=== PATIENT | male | born 1960 | race American Indian/Alaskan Native ===

== ENCOUNTER 2023-07-17 22:42 | Inpatient (IN) ==
[2023-07-17] MEDS ORDERED: Patient's ALLERGY Info needs ENTERED SCH (22:54)
[2023-07-17 23:47] LABS: Basophils # (auto) 0.05 K/uL (0.00-0.20); Basophils % (auto) 0.8 %; Eosinophils # (auto) 0.08 K/uL (0.00-0.50); Eosinophils % (auto) 1.3 %; Hematocrit (blood only) 39.8 % (42.0-52.0); Hemoglobin 13.9 g/dl (14.0-18.0); Immature Granulocytes # (auto) 0.07 K/uL (0.01-0.20); Immature Granulocytes % (auto) 1.2 %; Lymphocytes # (auto) 0.63 K/uL (1.20-3.40); Lymphocytes % (auto) 10.4 %; Mean Corpuscular Hemoglobin 32.6 pg (25.0-34.0); Mean Corpuscular Hgb Conc 34.9 g/dL (32.0-36.0); Mean Corpuscular Volume 93.4 fL (80.0-100.0); Monocytes % (auto) 13.2 %; Neutrophils # (auto) 4.45 K/uL (1.40-6.50); Neutrophils % (auto) 73.1 %; Platelet Count 209 K/uL (130-400); RDW Coefficient of Variation 13.7 % (11.5-14.5); RDW Standard Deviation 46.8 fL (36.4-46.3); Red Blood Count 4.26 M/uL (4.70-6.10); White Blood Count 6.08 K/ul (4.8-10.8)
[2023-07-17 23:55] LABS: Albumin Globulin Ratio 1.3 (0.9-2); Albumin Level 4.4 gm/dl (3.4-5.0); BUN Creatinine Ratio 8.2 (10-20); Bilirubin,Total 0.4 mg/dl (0.2-1.0); Calcium 8.7 mg/dl (8.6-10.3); Creatinine Clr Calc Pharmacy 127.5 ml/min; Globulin 3.3 gm/dl (2.5-4.0); Potassium 3.6 mmol/L (3.5-5.1); Total Protein 7.7 gm/dl (6.0-8.3)
[2023-07-18] MEDS ORDERED: LORazepam 1 MG/1 ML SYR ED Inj Use IV STA (00:48)
[2023-07-18] MEDS ORDERED: MULTI-VITAMIN INFUSION 10 ML, THIAMINE HCL 100 MG, FOLIC ACID 1 MG in SODIUM CHLORIDE 0... IV ONE (00:48)
[2023-07-18] MEDS ORDERED: KETOROLAC TROMETHAMINE 15 MG/ML VIAL IV ONE (01:01)
[2023-07-18 01:12] LABS: Magnesium 1.6 mg/dl (1.7-2.4)
[2023-07-18] MEDS ORDERED: LORazepam 2 MG in SYRINGE 1 ML IV PRN (01:27)
[2023-07-18] MEDS ORDERED: OLANZapine 10 MG/2.1 ML SDV IM PRN (01:27)
[2023-07-18] MEDS ORDERED: LORazepam 3 MG in SYRINGE 1.5 ML IV PRN (01:27)
[2023-07-18] MEDS ORDERED: Ativan IV Alcohol Withdrawal--Active Protocol IV PRN (01:27)
--- NOTE | 2023-07-18 01:31 | History & Physical Report ---
Date of Service July 18, 2023 Assessment & Plan (1) Alcohol withdrawal: (2) Alcoholism: (3) Hypertension: (4) Hypomagnesemia: (5) Transaminitis: (6) GERD (gastroesophageal reflux disease): (7) COPD (chronic obstructive pulmonary disease): Plan Alcohol withdrawal/alcoholism- Patient has been a lifelong drinker Placed on AWSS with IV Ativan protocol in the a.m. Thiamine 100 mg IV every morning Folic acid 1 mg IV every morning NSS + KCl 20 mill equivalents at 80 mL/h x 2 L Hypertension- Reports his blood pressure has been elevated in the past, but is not on medication at this point Start clonidine 0.2 mg p.o. twice daily Hydralazine 10 mg IV every 4 hours as needed systolic blood pressure greater than 160 if heart rate less than 70 Lopressor 5 mg IV every 4 hours as needed for systolic blood pressure greater than 160 if heart rate greater than 70 Hypomagnesemia- Magnesium 1.6 on admission Give magnesium sulfate 2 g IV, repeat laboratories in a.m. Transaminitis- Likely secondary to alcohol AST 61, ALT 60, alkaline phosphatase [address] abdomen pelvis to assess for possible fatty liver versus ALEXANDER versus cirrhosis History of Present Illness Chief Complaint: The patient presents to the emergency department due to family concerns regarding worsening symptoms of alcohol withdrawal, including tremors, intermittent confusion, but no history of seizures during previous episodes of withdrawal Primary Care Provider: NO PCP The patient is a 63-year-old male with past medical history including alcoholism, GERD, and COPD, who comes into the emergency department at the insistence of his daughter, who is with him in the emergency department. He reports his last attempt at alcohol cessation was in 2019, and his last alcoholic drink was earlier in the day prior to arrival. He denies any recent travels or sick exposures. He has not had any issues with seizures in the past when going through withdrawal. He has been drinking all his life. Allergies Allergy/AdvReac Type Severity Reaction Status Date / Time doxycycline AdvReac Nausea Verified 07/18/23 01:45 morphine AdvReac Nausea Verified 07/18/23 01:45 Home Medications Medication Instructions Recorded Confirmed Type amoxicillin 500 mg capsule 500 mg PO TID 07/18/23 07/18/23 History ipratropium bromide 17 2 puff inhalation Q6 07/18/23 07/18/23 History mcg/actuation HFA aerosol inhaler (Atrovent HFA) ondansetron 4 mg disintegrating 4 mg PO Q6 PRN nausea or vomiting 07/18/23 07/18/23 History tablet prednisone 20 mg tablet 20 mg PO BID 07/18/23 07/18/23 History promethazine 25 mg tablet 25 mg PO Q4 PRN Nausea And Vomiting 07/18/23 07/18/23 History rabeprazole 20 mg tablet,delayed 20 mg PO DAILY 07/18/23 07/18/23 History release Past Med/Surg History Medical History (Updated 07/18/23 @ 06:42 by Asael Caraballo MD) COPD (chronic obstructive pulmonary disease) GERD (gastroesophageal reflux disease) Social History Smoking Status: Current every day smoker Tobacco Type: Cigarettes Preferred Language: Martiniquais Feels Safe at Home: Yes Review of Systems Review of Systems: The patient denies chest pain, palpitations, shortness of breath, dyspnea on exertion, cough, lower extremity swelling, sore throat, vomiting, diarrhea , constipation, abdominal pain, pelvic pain, blood in urine or stool, dysuria, urinary frequency or urgency, loss of consciousness, rash, abnormal bruising or bleeding, focal weakness, numbness or tingling in arms or legs, generalized arthralgias or myalgias, back or neck pain, or night sweats. The review of systems is otherwise negative other than for that already noted above, and at least 10 systems have been reviewed. Physical Exam Physical Exam: The patient is awake, alert and oriented 3, well developed and well nourished, normocephalic and atraumatic, lying in bed and in no acute distress, but upper extremity mild tremor bilaterally noted HEENT--PERRL, EOMI, mucous membranes and oropharynx dry. Neck--supple. No JVD. No bruits. Thyroid normal, trachea midline, no adenopathy. Heart--normal S1 and S2. No murmurs, rubs or gallops. Lungs--clear bilaterally, no respiratory distress, no accessory muscle use. Abdomen--normal bowel sounds and soft. Nontender. Nondistended. Mildly tympanitic Extremities--no cyanosis or clubbing. No edema. Dermatologic--normal skin turgor, normal color, no abnormal lymph nodes, no rash. Neurologic--cranial nerves II through XII grossly intact. Rheumatologic--normal range of motion. Psychiatric--normal affect. Results & Data Results & Data Vital Signs (Past 12 Hours) Vital Signs Temp Pulse Pulse Resp BP BP Pulse Ox 07/18/23 00:45 88 20 190/108 H 96 07/18/23 00:03 36.8 C 07/17/23 23:58 84 22 192/98 H 95 07/17/23 22:54 36.6 C 101 H 16 215/98 H 96 O2 Del Method 07/18/23 00:45 Room Air 07/18/23 00:03 07/17/23 23:58 Room Air 07/17/23 22:54 Room Air Laboratory Results Laboratory Results WBC 5.63 K/ul (4.8-10.8) 07/18/23 03:56 RBC 3.94 M/uL (4.70-6.10) L 07/18/23 03:56 Hgb 13.1 g/dl (14.0-18.0) L 07/18/23 03:56 Hct 36.6 % (42.0-52.0) L 07/18/23 03:56 MCV 92.9 fL (80.0-100.0) 07/18/23 03:56 MCH 33.2 pg (25.0-34.0) 07/18/23 03:56 MCHC 35.8 g/dL (32.0-36.0) 07/18/23 03:56 RDW Std Deviation 46.3 fL (36.4-46.3) 07/18/23 03:56 RDW Coeff of Enriqueta 13.5 % (11.5-14.5) 07/18/23 03:56 Plt Count 195 K/uL (130-400) 07/18/23 03:56 MPV 9.0 fL (9.4-12.4) L 07/18/23 03:56 Immature Gran % (Auto) 1.2 % 07/18/23 03:56 Neut % (Auto) 71.1 % 07/18/23 03:56 Lymph % (Auto) 13.0 % 07/18/23 03:56 [place] % (Auto) 12.6 % 07/18/23 03:56 Eos % (Auto) 1.4 % 07/18/23 03:56 Baso % (Auto) 0.7 % 07/18/23 03:56 Neut # (Auto) 4.00 K/uL (1.40-6.50) 07/18/23 03:56 Lymph # (Auto) 0.73 K/uL (1.20-3.40) L 07/18/23 03:56 [place] # (Auto) 0.71 K/uL (0.11-0.59) H 07/18/23 03:56 Eos # (Auto) 0.08 K/uL (0.00-0.50) 07/18/23 03:56 Baso # (Auto) 0.04 K/uL (0.00-0.20) 07/18/23 03:56 Immature Gran # (Auto) 0.07 K/uL (0.01-0.20) 07/18/23 03:56 Sodium 135 mmol/L (136-145) L 07/18/23 03:56 Potassium 3.4 mmol/L (3.5-5.1) L 07/18/23 03:56 Chloride 101 mmol/L (98-107) 07/18/23 03:56 Carbon Dioxide 26 mmol/L (21-32) 07/18/23 03:56 Anion Gap 8 (3-11) 07/18/23 03:56 BUN 5 mg/dl (6-23) L 07/18/23 03:56 Creatinine 0.54 mg/dl (0.6-1.4) L 07/18/23 03:56 Est Cr Clr Drug Dosing 144.0 ml/min 07/18/23 03:56 Est GFR ( Amer) 130.4 ml/min 07/18/23 03:56 Est GFR (Non-Af Amer) 112.5 ml/min 07/18/23 03:56 BUN/Creatinine Ratio 9.3 (10-20) L 07/18/23 03:56 Glucose 108 mg/dl (70-99(Fasting)) H 07/18/23 03:56 Calcium 8.0 mg/dl (8.6-10.3) L 07/18/23 03:56 Magnesium 1.6 mg/dl (1.7-2.4) L 07/17/23 23:14 Total Bilirubin 0.4 mg/dl (0.2-1.0) 07/18/23 03:56 AST 51 U/L (13-39) H 07/18/23 03:56 ALT 51 U/L (7-52) 07/18/23 03:56 Alkaline Phosphatase 98 U/L (34-104) 07/18/23 03:56 Total Protein 6.6 gm/dl (6.0-8.3) 07/18/23 03:56 Albumin 3.9 gm/dl (3.4-5.0) 07/18/23 03:56 Globulin 2.7 gm/dl (2.5-4.0) 07/18/23 03:56 Albumin/Globulin Ratio 1.4 (0.9-2) 07/18/23 03:56 Code Status & VTE Plan Code Status Full code VTE Prophylaxis Plan VTE Prophylaxis will be ordered: Yes PG Care Time/CCT Total # of Minutes Spent Total Time Spent with Patient: Total time spent is greater than 50% in coordination of care (as documented) at patient's floor/unit and/or counseling patient: Coding Level of Care Code 39434 INT INP/OBS CARE 3/75MIN Diagnoses Alcohol withdrawal F10.939 Alcoholism F10.20 Hypertension I10 Hypomagnesemia E83.42 Transaminitis R74.01 GERD (gastroesophageal reflux disease) K21.9 COPD (chronic obstructive pulmonary disease) J44.9
[2023-07-18] MEDS ORDERED: PANTOprazole 40 MG in SYRINGE 0 ML IV ONE (01:48)
[2023-07-18] MEDS ORDERED: ONDANSETRON INJ 2 MG/ML 2 ML VIAL IV PRN (02:59)
[2023-07-18] MEDS ORDERED: NSS + 20MEQ KCL 20 MEQ/1,000 ML BAG IV SCH (03:15)
[2023-07-18] MEDS: NSS + 20MEQ KCL 20 MEQ/1,000 ML BAG IV SCH ×2 (03:59→15:52)
[2023-07-18] MEDS: MAGNESIUM SULFATE / D5W 1 GM/100 ML BAG IV SCH ×2 (04:00→05:46)
--- NOTE | 2023-07-18 04:00 | Emergency Department Note ---
Impression & Plan Alcohol withdrawal, Hypertension ED Provider Note NAME: BRAYDEN MO AGE: 63 SEX: Male INFORMANT: Patient ED PROVIDER(S): Luis Alberto Méndez MD CHIEF COMPLAINT: Alcohol withdrawal PLAN: Disposition: Admitted Outpatient prescription management: none Referral: None MEDICAL DECISION MAKING: Patient presented because of complaints of alcohol withdrawal. He was tremulous and did have hypertension. Patient notes having significant issues with shaking in the past with discontinuation of alcohol. This is concerning for significant alcohol addiction and is very concerning for serious withdrawal. Patient was given a banana bag and 2 mg of IV Ativan. His LFTs are mildly elevated. CBC and chemistry panel was unremarkable otherwise. Discussed further management in the hospital with him and his family. They were in agreement. Consultation was made with Dr. Asael Caraballo of the [facility] service. Patient was evaluated in the ER for further management. Care/management discussed with: staffing branch manager Level of care consideration(s): After review of the information above and other included data, I feel the patient requires escalation of care to admission Triage Nursing notes: reviewed and agree them. Vital Signs: reviewed and remarkable for hypertension Additional History obtained from: Patient's daughter. She notes that he is very tremulous when he does not drink. Chronic Medical/Social Conditions affecting care: Alcohol addiction Prior/ Outside/ External records reviewed: none Differential Diagnosis: Alcohol withdrawal, toxicologic, infection, hypoglycemia, electrolyte abnormalities, cardiac sources, intracerebral event, neurologic, as well as other pathologies. Diagnostics, independently interpreted by me: ECG: Twelve-lead ECG reveals a normal sinus rhythm at [address] elevation or depression. Cardiac Monitoring: Cardiac monitoring ordered by me: The patient was placed on continuous cardiac monitoring and observed. It revealed a normal sinus rhythm at 82 beats per minute without ectopy or evidence of dysrhythmia. Medical decision rules: none Imaging studies: Chest x-ray notes some right-sided hilar fullness however no natanael infiltrate or pneumothorax. HPI: 63 year old Male arrives for evaluation of alcohol withdrawal. Patient notes a long history of drinking alcohol. He drinks up to 15 beers a day. He notes that he ran out of beer and only had 4 today. He felt very shaky, generally weak, and tremulous. This has happened to him many times before. He is very concerned about withdrawal. He did take a dose of Librium that was leftover from a prescription for years ago. He notes only minimal relief with that. Patient is also been dealing with a hoarse voice and cough for few months. He is pending ENT referral. Pt denies LOC, headache, fevers, chills, diaphoresis, visual changes, neck pain, chest pain, breathing difficulties, nausea, vomiting, abdominal pain, back pain, melena, hematochezia, urinary symptoms, numbness, lymphadenopathy, rash, or other complaints.. PAST MEDICAL HISTORY: See Below, alcohol abuse PAST SURGICAL HISTORY: See Below, SOCIAL HISTORY: See Below, drinks daily HOME MEDICATIONS: See Below ALLERGIES: See Below VITALS: See Below PHYSICAL EXAMINATION: GENERAL: Awake, alert, anxious-appearing, mildly tremulous, in no distress HENT: Normocephalic, atraumatic. Oropharynx unremarkable. EYES: Normal conjunctiva. Sclera non-icteric. NECK: Inspection normal. Non-tender. Supple. No nuchal rigidity. FROM. No masses. RESPIRATORY: Clear to auscultation. No wheezes. No rales. Normal respiratory effort. CARDIAC: Normal rate. Normal rhythm. No murmurs. No rubs. Extremities warm and well perfused. Pulses equal. No JVD. GI: Soft, mildly distended. No tenderness to palpation. No rebound or guarding. No masses. RECTAL: Deferred. MUSCULOSKELETAL: Atraumatic. Chest examination reveals no tenderness. The back is symmetrical on inspection without obvious abnormality. There is no CVA tenderness to palpation. No joint edema. LOWER EXTREMITIES: Calves are equal size bilaterally and non-tender. No edema. No discoloration. NEURO: Normal sensorium. No sensory or motor deficits noted. SKIN: No rash or jaundice noted. PROCEDURES: none CRITICAL CARE: none OBSERVATION NOTE: none Past Med/Surg History Social History Smoking Status: Current every day smoker Tobacco Type: Cigarettes Preferred Language: Telugu Feels Safe at Home: Yes Allergies Allergies Allergy/AdvReac Type Severity Reaction Status Date / Time doxycycline AdvReac Nausea Verified 07/18/23 01:45 morphine AdvReac Nausea Verified 07/18/23 01:45 Home Meds Home Medications Medication Instructions Recorded Confirmed amoxicillin 500 mg capsule 500 mg PO TID 07/18/23 07/18/23 ipratropium bromide 17 2 puff inhalation Q6 07/18/23 07/18/23 mcg/actuation HFA aerosol inhaler (Atrovent HFA) ondansetron 4 mg disintegrating 4 mg PO Q6 PRN nausea or vomiting 07/18/23 07/18/23 tablet prednisone 20 mg tablet 20 mg PO BID 07/18/23 07/18/23 promethazine 25 mg tablet 25 mg PO Q4 PRN Nausea And Vomiting 07/18/23 07/18/23 rabeprazole 20 mg tablet,delayed 20 mg PO DAILY 07/18/23 07/18/23 release Results & Data (ED) Vital Signs Vital Signs - 24 hr 07/17/23 22:54 07/17/23 23:58 07/18/23 00:03 Temperature 36.6 C 36.8 C Temperature Source Temporal Artery Scan Oral Pulse Rate 101 H Pulse Rate [Apical] 84 Respiratory Rate 16 22 Blood Pressure 215/98 H Blood Pressure [Right Arm] 192/98 H Blood Pressure Mean 137 Blood Pressure Mean [Right Arm] 129 Pulse Oximetry 96 95 Oxygen Delivery Method Room Air Room Air Sepsis Recent Fever Within 48 Hours No Sepsis New/Unexplained Change in Mental Status No Sepsis Action Taken by Nursing No Action Required 07/18/23 00:45 07/18/23 00:50 Temperature Temperature Source Pulse Rate 88 Pulse Rate [Apical] 88 Respiratory Rate 20 Blood Pressure Blood Pressure [Right Arm] 190/108 H Blood Pressure Mean Blood Pressure Mean [Right Arm] 135 Pulse Oximetry 96 Oxygen Delivery Method Room Air Sepsis Recent Fever Within 48 Hours Sepsis New/Unexplained Change in Mental Status Sepsis Action Taken by Nursing Laboratory Data 07/17/23 23:14 07/17/23 23:14 Lab Results 07/17/23 Range/Units 23:14 WBC 6.08 (4.8-10.8) K/ul RBC 4.26 L (4.70-6.10) M/uL Hgb 13.9 L (14.0-18.0) g/dl Hct 39.8 L (42.0-52.0) % MCV 93.4 (80.0-100.0) fL MCH 32.6 (25.0-34.0) pg MCHC 34.9 (32.0-36.0) g/dL RDW Std Deviation 46.8 H (36.4-46.3) fL RDW Coeff of Enriqueta 13.7 (11.5-14.5) % Plt Count 209 (130-400) K/uL MPV 9.0 L (9.4-12.4) fL Immature Gran % (Auto) 1.2 % Neut % (Auto) 73.1 % Lymph % (Auto) 10.4 % [place] % (Auto) 13.2 % Eos % (Auto) 1.3 % Baso % (Auto) 0.8 % Neut # (Auto) 4.45 (1.40-6.50) K/uL Lymph # (Auto) 0.63 L (1.20-3.40) K/uL [place] # (Auto) 0.80 H (0.11-0.59) K/uL Eos # (Auto) 0.08 (0.00-0.50) K/uL Baso # (Auto) 0.05 (0.00-0.20) K/uL Immature Gran # (Auto) 0.07 (0.01-0.20) K/uL Sodium 133 L (136-145) mmol/L Potassium 3.6 (3.5-5.1) mmol/L Chloride 96 L (98-107) mmol/L Carbon Dioxide 26 (21-32) mmol/L Anion Gap 11 (3-11) BUN 5 L (6-23) mg/dl Creatinine 0.61 (0.6-1.4) mg/dl Est Cr Clr Drug Dosing 127.5 ml/min Est GFR ( Amer) 124.0 ml/min Est GFR (Non-Af Amer) 107.0 ml/min BUN/Creatinine Ratio 8.2 L (10-20) Glucose 95 (70-99(Fasting)) mg/dl Calcium 8.7 (8.6-10.3) mg/dl Magnesium 1.6 L (1.7-2.4) mg/dl Total Bilirubin 0.4 (0.2-1.0) mg/dl AST 61 H (13-39) U/L ALT 60 H (7-52) U/L Alkaline Phosphatase 107 H (34-104) U/L Total Protein 7.7 (6.0-8.3) gm/dl Albumin 4.4 (3.4-5.0) gm/dl Globulin 3.3 (2.5-4.0) gm/dl Albumin/Globulin Ratio 1.3 (0.9-2) Administered Medications Discontinued Medications Multivitamins 10 ml/ Thiamine HCl 100 mg/ Folic Acid 1 mg/Sodium Chloride 1,011.2 mls @ 500 mls/hr IV .Q2H2M ONE Stop: 07/18/23 02:49 Last Admin: 07/18/23 01:05 Dose: 500 mls/hr Documented By: LINDA Pantoprazole Sodium 40 mg/ (Syringe) 10 mls @ 5 mls/min IV NOW ONE Stop: 07/18/23 01:49 Last Admin: 07/18/23 02:13 Dose: 5 mls/min Documented By: LINDA Ketorolac Tromethamine (Ketorolac Tromethamine 15 Mg/Ml Vial) 10 mg IV NOW ONE Stop: 07/18/23 01:02 Last Admin: 07/18/23 01:05 Dose: 10 mg Documented By: LINDA Lorazepam (Lorazepam 1 Mg/1 Ml Syr Ed Inj Use) 2 mg IV ONE STA Stop: 07/18/23 00:49 Last Admin: 07/18/23 00:53 Dose: 2 mg Documented By: LINDA Discharge Plan Visit Data Chief Complaint: Alcohol Withdrawal Stated Complaint: TREMERS FROM ALCOHOL WITHDRAWL ED Provider: Luis Alberto Méndez Discharge Problem: Alcohol withdrawal, Hypertension Patient Disposition: Admitted As Inpatient Discharge Instructions Interventions: ED Discharge Assessment Last Done: 07/18/23 02:59
[2023-07-18 04:36] LABS: Basophils # (auto) 0.04 K/uL (0.00-0.20); Basophils % (auto) 0.7 %; Eosinophils # (auto) 0.08 K/uL (0.00-0.50); Eosinophils % (auto) 1.4 %; Hematocrit (blood only) 36.6 % (42.0-52.0); Hemoglobin 13.1 g/dl (14.0-18.0); Immature Granulocytes # (auto) 0.07 K/uL (0.01-0.20); Immature Granulocytes % (auto) 1.2 %; Lymphocytes # (auto) 0.73 K/uL (1.20-3.40); Mean Corpuscular Hemoglobin 33.2 pg (25.0-34.0); Mean Corpuscular Hgb Conc 35.8 g/dL (32.0-36.0); Mean Corpuscular Volume 92.9 fL (80.0-100.0); Monocytes # (auto) 0.71 K/uL (0.11-0.59); Monocytes % (auto) 12.6 %; Neutrophils % (auto) 71.1 %; Platelet Count 195 K/uL (130-400); RDW Coefficient of Variation 13.5 % (11.5-14.5); RDW Standard Deviation 46.3 fL (36.4-46.3); Red Blood Count 3.94 M/uL (4.70-6.10); White Blood Count 5.63 K/ul (4.8-10.8)
[2023-07-18 04:53] LABS: Albumin Globulin Ratio 1.4 (0.9-2); Albumin Level 3.9 gm/dl (3.4-5.0); BUN Creatinine Ratio 9.3 (10-20); Bilirubin,Total 0.4 mg/dl (0.2-1.0); Est GFR (African American) 130.4 ml/min; Est GFR (Non-African American) 112.5 ml/min; Globulin 2.7 gm/dl (2.5-4.0); Potassium 3.4 mmol/L (3.5-5.1); Total Protein 6.6 gm/dl (6.0-8.3)
[2023-07-18] MEDS: LORazepam 1 MG in SYRINGE 0.5 ML IV PRN ×2 (05:54→10:59)
[2023-07-18] MEDS ORDERED: hydrALAZINE HCL 20 MG/ML VIAL IV PRN (06:32)
[2023-07-18] MEDS ORDERED: METOPROLOL TARTRATE 1 MG/ML VIAL IV PRN (06:32)
--- NOTE | 2023-07-18 07:00 | XRay Report ---
XR chest 1V portable CLINICAL HISTORY: Cough. COMPARISON STUDY: No previous studies for comparison. FINDINGS: Lung volumes are normal. Lungs are clear. There is no pneumothorax or pleural effusion. Car diac size is normal. Mediastinal contours are normal. There is no evidence for pulmonary edema. IMPRESSION: No acute cardiopulmonary findings. ACT 112: Negative or not required by law. Electronically signed by: Jefe Mcintosh M.D. 07/18/2023 6:58 AM
--- NOTE | 2023-07-18 08:30 | CT Scan Report ---
ABDOMEN AND PELVIS CT WITHOUT CONTRAST CT DOSE: 1107.32 mGy.cm HISTORY: Acute upper abdominal pain with elevated LFTs transaminitis TECHNIQUE: Multiaxial CT images of the abdomen and pelvis were performed without contrast. A dose lo wering technique was utilized adhering to the principles of ALARA. COMPARISON STUDY: None. FINDINGS: No acute lower thoracic abnormality identified. No free air. The unenhanced spleen is unrem arkable with scattered subcentimeter calcifications. Unremarkable pancreas and adrenal glands. Cholec ystectomy. The liver is enlarged measuring up to 22 cm. Hepatic steatosis. No suspicious hepatic mass lesions identified. Mild nonspecific bilateral perinephric stranding. No renal or ureteral calculi or hydronephrosis. The urinary bladder is distended measuring up to 14.7 cm. Prostate is upper limits of normal in size. At herosclerosis of the aorta without aneurysm. No lymphadenopathy. Mild colonic diverticulosis. Mild to moderate colonic fecal retention. Noninflamed appendix, image 26 7. No bowel obstruction or bowel wall thickening. Scattered small bowel air-fluid levels which may be physiologic. Unremarkable soft tissues. Avascular necrosis of left femoral head. No acute fracture. IMPRESSION: 1. No bowel obstruction or bowel wall thickening. Normal appendix. 2. Colonic diverticulosis. 3. Hepatomegaly with hepatic steatosis. 4. Distended urinary bladder. 5. Avascular necrosis of the left femoral head. ACT 112: Negative or not required by law. The above report was generated using voice recognition software. It may contain grammatical, syntax o r spelling errors. Electronically signed by: Rayshawn Gomez M.D. 07/18/2023 8:28 AM
[2023-07-18] MEDS: cloNIDine HCL 0.1 MG TAB PO SCH ×2 (08:33→21:45)
[2023-07-18] MEDS: FOLIC ACID 1 MG in SYRINGE 9.8 ML IV SCH (08:34)
[2023-07-18] MEDS: THIAMINE HCL 100 MG in SYRINGE 9 ML IV SCH (08:34)
[2023-07-18] MEDS: ENOXAPARIN INJ 40 MG/0.4 ML SYR SQ SCH (08:34)
[2023-07-18] MEDS: PANTOprazole 40 MG in SYRINGE 0 ML IV SCH (10:53)
[2023-07-18] MEDS ORDERED: LORazepam 1 MG/1 ML SYR ED Inj Use ONE (13:56)
[2023-07-18 15:23] LABS: Appearance Urine Clear (Clear); Bilirubin Urine Negative (Negative); Blood Urine Negative (Negative); Color Urine Yellow; Glucose Urine UA Negative (Negative); Ketones Urine Negative (Negative); Leukocyte Esterase Urine Negative (Negative); Nitrite Urine Negative (Negative); Protein Urine Negative (Negative); Specific Gravity Urine 1.005 (1.000-1.030); Urobilinogen Urine Negative (Negative)
[2023-07-18] MEDS ORDERED: chlordiazePOXIDE ALCOHOL WITHDRAWL 50MG PO STA (15:31)
[2023-07-18] MEDS: chlordiazePOXIDE HCl 25 MG CAP PO SCH ×3 (15:53→21:45)
--- NOTE | 2023-07-18 17:24 | Communication Note ---
Date of Service: July 18, 2023 Please refer to the H&P dictated by Dr. Asael Caraballo earlier this morning for details of presentation on admission. In brief, the patient presented to the ER since his daughter insisted on alcohol cessation. He says that he wishes to quit. He is now going through alcohol withdrawals. He is on the AW SS protocol. He wanted to be switched from Ativan to Librium. He has had alcohol withdrawals in the past but never had a seizure. Will monitor.
--- NOTE | 2023-07-18 19:52 | Electrocardiogram Report ---
Test Reason : Blood Pressure : / mmHG Vent. Rate : 090 BPM Atrial Rate : 090 BPM P-R Int : 130 ms QRS Dur : 088 ms QT Int : 378 ms P-R-T Axes : 057 049 048 degrees QTc Int : 462 ms Normal sinus rhythm Normal ECG No previous ECGs available Confirmed by Nacho Lopez ([id number]) on 07/18/2023 7:51:59 PM Referred By: REFERRED SELF Confirmed By:Shayne Lopez
[2023-07-18] MEDS: IBUPROFEN 600 MG TAB PO PRN (20:40)
[2023-07-19] MEDS: NSS + 20MEQ KCL 20 MEQ/1,000 ML BAG IV SCH ×3 (03:40→20:16)
[2023-07-19] MEDS: chlordiazePOXIDE HCl 25 MG CAP PO SCH ×3 (03:40→17:41)
[2023-07-19] MEDS ORDERED: COUGH DROP (SUGAR FREE) LOZ 24 LOZ/1 BOX BUCCAL PRN (05:06)
[2023-07-19] MEDS: CHLORASEPTIC (PHENOL) 1.4% SOLN 180 ML BTL MT PRN ×2 (05:47→20:14)
[2023-07-19 06:09] LABS: Basophils # (auto) 0.05 K/uL (0.00-0.20); Basophils % (auto) 1.1 %; Eosinophils # (auto) 0.15 K/uL (0.00-0.50); Eosinophils % (auto) 3.4 %; Hematocrit (blood only) 40.8 % (42.0-52.0); Hemoglobin 13.7 g/dl (14.0-18.0); Immature Granulocytes # (auto) 0.04 K/uL (0.01-0.20); Immature Granulocytes % (auto) 0.9 %; Lymphocytes # (auto) 1.03 K/uL (1.20-3.40); Lymphocytes % (auto) 23.5 %; Mean Corpuscular Hemoglobin 32.5 pg (25.0-34.0); Mean Corpuscular Hgb Conc 33.6 g/dL (32.0-36.0); Mean Corpuscular Volume 96.7 fL (80.0-100.0); Mean Platelet Volume 9.2 fL (9.4-12.4); Monocytes # (auto) 0.68 K/uL (0.11-0.59); Monocytes % (auto) 15.5 %; Neutrophils # (auto) 2.43 K/uL (1.40-6.50); Neutrophils % (auto) 55.6 %; Platelet Count 203 K/uL (130-400); RDW Coefficient of Variation 13.9 % (11.5-14.5); RDW Standard Deviation 49.1 fL (36.4-46.3); Red Blood Count 4.22 M/uL (4.70-6.10); White Blood Count 4.38 K/ul (4.8-10.8)
[2023-07-19 06:23] LABS: Albumin Globulin Ratio 1.4 (0.9-2); Albumin Level 4.1 gm/dl (3.4-5.0); BUN Creatinine Ratio 11.3 (10-20); Bilirubin,Total 0.5 mg/dl (0.2-1.0); Calcium 8.9 mg/dl (8.6-10.3); Creatinine Clr Calc Pharmacy 100.9 ml/min; Est GFR (African American) 116.5 ml/min; Est GFR (Non-African American) 100.6 ml/min; Globulin 2.9 gm/dl (2.5-4.0); Potassium 3.8 mmol/L (3.5-5.1)
[2023-07-19] MEDS: FOLIC ACID 1 MG in SYRINGE 9.8 ML IV SCH (08:54)
[2023-07-19] MEDS: cloNIDine HCL 0.1 MG TAB PO SCH ×2 (08:54→20:16)
[2023-07-19] MEDS: THIAMINE HCL 100 MG in SYRINGE 9 ML IV SCH (08:54)
[2023-07-19] MEDS: ENOXAPARIN INJ 40 MG/0.4 ML SYR SQ SCH (08:55)
[2023-07-19] MEDS: PANTOprazole 40 MG in SYRINGE 0 ML IV SCH (11:44)
[2023-07-19] MEDS ORDERED: OPTIRAY 320 500ml IV ONE (15:27)
--- NOTE | 2023-07-19 15:43 | CT Scan Report ---
CT OF THE NECK WITH IV CONTRAST CLINICAL HISTORY: Throat pain. COMPARISON STUDY: No previous studies for comparison. TECHNIQUE: Following IV administration of 90 mL of Optiray, helical axial images of the neck were ob tained. Sagittal and coronal reconstructions were viewed. Automated exposure control was utilized f or the study. A dose lowering technique was utilized adhering to the principles of ALARA. FINDINGS: Visualized portions of the intracranial contents are unremarkable. Sinuses are clear. Visu alized portions of the orbits are unremarkable. There is mild sinus mucosal thickening. Parotid and s ubmandibular glands are normal. The epiglottis is normal. There is no prevertebral edema. No fluid co llection within the neck is present. No mucosal lesion is identified although these may be occult by CT. Major vasculature of the neck is patent. There is moderate plaque within the carotid bifurcations without stenosis. Emphysema within the lung apices. No selective cervical spine abnormality is prese nt. IMPRESSION: 1. No acute process within the neck. No fluid collection. No abscess. 2. Emphysema. ACT 112: Negative or not required by law. Electronically signed by: Jefe Mcintosh M.D. 07/19/2023 3:41 PM
[2023-07-19] MEDS ORDERED: BENZOCAINE 20% (ORAJEL) 11.9 GM TUBE MT PRN (15:47)
--- NOTE | 2023-07-19 15:51 | Hospitalist Progress Note ---
Date of Service July 19, 2023 Assessment & Plan (1) Alcohol withdrawal: (2) Alcoholism: (3) Hypertension: (4) Hypomagnesemia: (5) Transaminitis: (6) GERD (gastroesophageal reflux disease): (7) COPD (chronic obstructive pulmonary disease): Plan Alcohol withdrawal/alcoholism- Patient has been a lifelong drinker Placed on AWSS On Librium tapering dose Thiamine 100 mg IV every morning Folic acid 1 mg IV every morning NSS + KCl 20 mill equivalents at 80 mL/h x 2 L Hypertension- Reports his blood pressure has been elevated in the past, but is not on medication at this point Start clonidine 0.2 mg p.o. twice daily Hydralazine 10 mg IV every 4 hours as needed systolic blood pressure greater than 160 if heart rate less than 70 Lopressor 5 mg IV every 4 hours as needed for systolic blood pressure greater than 160 if heart rate greater than 70 Hypomagnesemia- Magnesium 1.6 on admission Give magnesium sulfate 2 g IV Improved Transaminitis- Likely secondary to alcohol AST 61, ALT 60, alkaline phosphatase 107 CT abdomen showed hepatic steatosis. No cirrhosis seen. Throat and mouth pain No oral thrush seen CT soft tissue of the neck was negative Ordered benzocaine for symptomatic relief Ordered nystatin in case there is thrush more internally that was not visible e xternally DVT prophylaxis: Lovenox Full code Admission and Anticipated Discharge Date Admission Date: July 18, 2023 Subjective Patient is complaining of pain in his mouth and throat. He tells me that this throat pain has been going on for 2 months. He is requesting a CT of the neck. From a withdrawal standpoint, he is doing fairly well per nurse. Review of Systems Review of Systems: All systems reviewed & are unremarkable except as noted in Subjective Physical Exam Physical Exam: General: Awake, conversant Heart: S1, S2/regular rate and rhythm, no murmur rubs or gallops Lungs: Clear to auscultation bilaterally. Normal effort Abdomen: Soft/nontender/nondistended. No hepatosplenomegaly Extremities: No clubbing/cyanosis. No edema Behavior: Appropriate, cooperative Results & Data Results & Data Vital Signs (Past 12 Hours) Vital Signs Temp Pulse Pulse Resp BP Pulse Ox O2 Del Method 07/19/23 15:13 72 07/19/23 07:54 73 07/19/23 07:23 36.8 C 72 20 164/90 H 98 Room Air 07/19/23 06:24 80 Laboratory Results Soft Tissue Neck CT 07/19/23 14:25 CT OF THE NECK WITH IV CONTRAST CLINICAL HISTORY: Throat pain. COMPARISON STUDY: No previous studies for comparison. TECHNIQUE: Following IV administration of 90 mL of Optiray, helical axial images of the neck were obtained. Sagittal and coronal reconstructions were viewed. Automated exposure control was utilized for the study. A dose lowering technique was utilized adhering to the principles of ALARA. FINDINGS: Visualized portions of the intracranial contents are unremarkable. Sinuses are clear. Visualized portions of the orbits are unremarkable. There is mild sinus mucosal thickening. Parotid and submandibular glands are normal. The epiglottis is normal. There is no prevertebral edema. No fluid collection within the neck is present. No mucosal lesion is identified although these may be occult by CT. Major vasculature of the neck is patent. There is moderate plaque within the carotid bifurcations without stenosis. Emphysema within the lung apices. No selective cervical spine abnormality is present. IMPRESSION: 1. No acute process within the neck. No fluid collection. No abscess. 2. Emphysema. ACT 112: Negative or not required by law. Electronically signed by: Jefe Mcintosh M.D. 07/19/2023 3:41 PM PG Care Time/CCT Total # of Minutes Spent Total Time Spent with Patient: Total time spent is greater than 50% in coordination of care (as documented) at patient's floor/unit and/or counseling patient: Coding Level of Care Code 95398 SUB INP/OBS CARE 2/35MIN Diagnoses Alcohol withdrawal F10.939 Alcoholism F10.20 Hypertension I10 Hypomagnesemia E83.42 Transaminitis R74.01 GERD (gastroesophageal reflux disease) K21.9 COPD (chronic obstructive pulmonary disease) J44.9
[2023-07-19] MEDS: NYSTATIN SUSP 500,000 U/5 ML UDC PO SCH ×2 (17:41→20:14)
[2023-07-19] MEDS: LORazepam 1 MG in SYRINGE 0.5 ML IV PRN (20:14)
[2023-07-20] MEDS ORDERED: guaiFENesin 600 MG TABCR PO ONE (00:03)
[2023-07-20] MEDS: IBUPROFEN 600 MG TAB PO PRN ×2 (00:34→20:36)
[2023-07-20] MEDS: chlordiazePOXIDE HCl 25 MG CAP PO SCH ×3 (02:36→17:55)
[2023-07-20 06:30] LABS: Basophils # (auto) 0.05 K/uL (0.00-0.20); Eosinophils # (auto) 0.19 K/uL (0.00-0.50); Eosinophils % (auto) 3.8 %; Hematocrit (blood only) 40.7 % (42.0-52.0); Hemoglobin 13.6 g/dl (14.0-18.0); Immature Granulocytes # (auto) 0.08 K/uL (0.01-0.20); Immature Granulocytes % (auto) 1.6 %; Lymphocytes % (auto) 19.8 %; Mean Corpuscular Hemoglobin 32.2 pg (25.0-34.0); Mean Corpuscular Hgb Conc 33.4 g/dL (32.0-36.0); Mean Corpuscular Volume 96.4 fL (80.0-100.0); Mean Platelet Volume 9.3 fL (9.4-12.4); Monocytes # (auto) 0.76 K/uL (0.11-0.59); Neutrophils # (auto) 2.98 K/uL (1.40-6.50); Neutrophils % (auto) 58.8 %; Platelet Count 206 K/uL (130-400); RDW Coefficient of Variation 13.8 % (11.5-14.5); Red Blood Count 4.22 M/uL (4.70-6.10); White Blood Count 5.06 K/ul (4.8-10.8)
[2023-07-20 06:41] LABS: Albumin Globulin Ratio 1.4 (0.9-2); BUN Creatinine Ratio 11.1 (10-20); Bilirubin,Total 0.5 mg/dl (0.2-1.0); Creatinine Clr Calc Pharmacy 107.8 ml/min; Est GFR (African American) 115.9 ml/min; Globulin 2.9 gm/dl (2.5-4.0); Magnesium 1.8 mg/dl (1.7-2.4); Potassium 3.8 mmol/L (3.5-5.1); Total Protein 6.9 gm/dl (6.0-8.3)
[2023-07-20] MEDS: ENOXAPARIN INJ 40 MG/0.4 ML SYR SQ SCH (08:59)
[2023-07-20] MEDS: cloNIDine HCL 0.1 MG TAB PO SCH ×2 (08:59→20:36)
[2023-07-20] MEDS: NYSTATIN SUSP 500,000 U/5 ML UDC PO SCH ×4 (09:00→20:37)
[2023-07-20] MEDS: THIAMINE HCL 100 MG in SYRINGE 9 ML IV SCH (09:00)
[2023-07-20] MEDS: FOLIC ACID 1 MG in SYRINGE 9.8 ML IV SCH (09:00)
[2023-07-20] MEDS ORDERED: Nursing to Pharmacy Communication SCH (11:00)
[2023-07-20] MEDS: NSS + 20MEQ KCL 20 MEQ/1,000 ML BAG IV SCH (11:57)
[2023-07-20] MEDS: DOCUSATE SODIUM 100 MG CAP PO SCH ×2 (12:01→20:38)
[2023-07-20] MEDS: POLYETHYLENE (MIRALAX) 17 GM PACK PO PRN (12:01)
--- NOTE | 2023-07-20 13:06 | Hospitalist Progress Note ---
Date of Service July 20, 2023 Assessment & Plan (1) Alcohol withdrawal: (2) Alcoholism: (3) Hypertension: (4) Hypomagnesemia: (5) Transaminitis: (6) GERD (gastroesophageal reflux disease): (7) COPD (chronic obstructive pulmonary disease): Plan Alcohol withdrawal/alcoholism- Patient has been a lifelong drinker Placed on AWSS On Librium tapering dose. Patient is agreeable to taking Librium now Thiamine 100 mg IV every morning Folic acid 1 mg IV every morning NSS + KCl 20 mill equivalents at 80 mL/h x 2 L Hypertension- Reports his blood pressure has been elevated in the past, but is not on medication at this point Start clonidine 0.2 mg p.o. twice daily Hydralazine 10 mg IV every 4 hours as needed systolic blood pressure greater than 160 if heart rate less than 70 Lopressor 5 mg IV every 4 hours as needed for systolic blood pressure greater than 160 if heart rate greater than 70 Hypomagnesemia- Magnesium 1.6 on admission Give magnesium sulfate 2 g IV Improved Transaminitis- Likely secondary to alcohol AST 61, ALT 60, alkaline phosphatase 107 CT abdomen showed hepatic steatosis. No cirrhosis seen. Abdominal distention Patient feels that his abdomen is distended subjectively Recent CT abdomen did not show any ascites or ileus Patient is eating 100% of his meals No nausea or vomiting Patient had a bowel movement today but says that he feels like he could have evacuated more. Ordered a bowel regimen Asked the nurse to inform me if he vomits Throat and mouth pain No oral thrush seen CT soft tissue of the neck was negative Ordered benzocaine for symptomatic relief Ordered nystatin in case there is thrush more internally that was not visible externally DVT prophylaxis: Lovenox Full code Admission and Anticipated Discharge Date Admission Date: July 18, 2023 Subjective Patient is refusing Librium because he thinks that it is making his abdomen feel bloated. Per nurse, the patient is eating well. Not throwing up. Had a bowel movement. He tells me that he did not feel like he evacuated enough. He says he feels gassy. Review of Systems Review of Systems: All systems reviewed & are unremarkable except as noted in Subjective Physical Exam Physical Exam: General: Awake, conversant Heart: S1, S2/regular rate and rhythm, no murmur rubs or gallops Lungs: Clear to auscultation bilaterally. Normal effort Abdomen: Soft/nontender/slightly distended. No hepatosplenomegaly Extremities: No clubbing/cyanosis. No edema Behavior: Appropriate, cooperative Results & Data Results & Data Vital Signs (Past 12 Hours) Vital Signs Temp Pulse Pulse Resp BP Pulse Ox O2 Del Method 07/20/23 12:25 36.4 C L 82 18 132/80 95 Room Air 07/20/23 09:00 Room Air 07/20/23 07:44 63 07/20/23 03:08 36.4 C L 68 18 153/92 H 96 Room Air 07/20/23 02:00 89 Laboratory Results Abnormal lab results 07/20/23 Range/Units 05:33 RBC 4.22 L (4.70-6.10) M/uL Hgb 13.6 L (14.0-18.0) g/dl Hct 40.7 L (42.0-52.0) % RDW Std Deviation 49.0 H (36.4-46.3) fL MPV 9.3 L (9.4-12.4) fL Lymph # (Auto) 1.00 L (1.20-3.40) K/uL [place] # (Auto) 0.76 H (0.11-0.59) K/uL Diagnostic Findings Soft Tissue Neck CT 07/19/23 14:25 CT OF THE NECK WITH IV CONTRAST CLINICAL HISTORY: Throat pain. COMPARISON STUDY: No previous studies for comparison. TECHNIQUE: Following IV administration of 90 mL of Optiray, helical axial images of the neck were obtained. Sagittal and coronal reconstructions were viewed. Automated exposure control was utilized for the study. A dose lowering technique was utilized adhering to the principles of ALARA. FINDINGS: Visualized portions of the intracranial contents are unremarkable. Sinuses are clear. Visualized portions of the orbits are unremarkable. There is mild sinus mucosal thickening. Parotid and submandibular glands are normal. The epiglottis is normal. There is no prevertebral edema. No fluid collection within the neck is present. No mucosal lesion is identified although these may be occult by CT. Major vasculature of the neck is patent. There is moderate plaque within the carotid bifurcations without stenosis. Emphysema within the lung apices. No selective cervical spine abnormality is present. IMPRESSION: 1. No acute process within the neck. No fluid collection. No abscess. 2. Emphysema. ACT 112: Negative or not required by law. Electronically signed by: Jefe Mcintosh M.D. 07/19/2023 3:41 PM PG Care Time/CCT Total # of Minutes Spent Total Time Spent with Patient: Total time spent is greater than 50% in coordination of care (as documented) at patient's floor/unit and/or counseling patient: Coding Level of Care Code 96715 SUB INP/OBS CARE 2/35MIN Diagnoses Alcohol withdrawal F10.939 Alcoholism F10.20 Hypertension I10 Hypomagnesemia E83.42 Transaminitis R74.01 GERD (gastroesophageal reflux disease) K21.9 COPD (chronic obstructive pulmonary disease) J44.9
[2023-07-20] MEDS: guaiFENesin 600 MG TABCR PO SCH ×2 (13:28→20:37)
[2023-07-20] MEDS ORDERED: bisacodyL 10 MG SUPP PR STA (18:37)
[2023-07-20] MEDS ORDERED: POLYETHYLENE (MIRALAX) 17 GM PACK PO ONE (19:28)
[2023-07-20] MEDS ORDERED: POLYETHYLENE (MIRALAX) 17 GM PACK PO SCH (19:30)
[2023-07-20] MEDS: CHLORASEPTIC (PHENOL) 1.4% SOLN 180 ML BTL MT PRN (20:36)
[2023-07-20] MEDS: LORazepam 1 MG in SYRINGE 0.5 ML IV PRN (20:36)
[2023-07-20] MEDS ORDERED: guaiFENesin 600 MG TABCR PO SCH (21:00)
[2023-07-21] MEDS: chlordiazePOXIDE HCl 25 MG CAP PO SCH ×2 (02:27→08:19)
[2023-07-21] MEDS ORDERED: bisacodyL 10 MG SUPP PR STA ×2 (03:11→21:37)
[2023-07-21] MEDS ORDERED: PROMETHAZINE HCL 25 MG TAB PO ONE (06:38)
[2023-07-21 07:15] LABS: Creatinine Clr Calc Pharmacy 112.5 ml/min; Est GFR (African American) 117.9 ml/min; Est GFR (Non-African American) 101.7 ml/min; Magnesium 1.8 mg/dl (1.7-2.4)
[2023-07-21] MEDS: guaiFENesin 600 MG TABCR PO SCH ×2 (08:19→20:28)
[2023-07-21] MEDS: IBUPROFEN 600 MG TAB PO PRN ×2 (08:19→20:24)
[2023-07-21] MEDS: DOCUSATE SODIUM 100 MG CAP PO SCH ×2 (08:19→20:28)
[2023-07-21] MEDS: cloNIDine HCL 0.1 MG TAB PO SCH ×2 (08:19→20:24)
[2023-07-21] MEDS: NYSTATIN SUSP 500,000 U/5 ML UDC PO SCH ×4 (08:19→20:24)
[2023-07-21] MEDS: POLYETHYLENE (MIRALAX) 17 GM PACK PO PRN (08:20)
[2023-07-21] MEDS: ENOXAPARIN INJ 40 MG/0.4 ML SYR SQ SCH (08:20)
[2023-07-21] MEDS: THIAMINE HCL 100 MG in SYRINGE 9 ML IV SCH (08:21)
[2023-07-21] MEDS: FOLIC ACID 1 MG in SYRINGE 9.8 ML IV SCH (08:21)
[2023-07-21] MEDS: RABEPRAZOLE 20 MG PO SCH (08:21)
--- NOTE | 2023-07-21 13:42 | Hospitalist Progress Note ---
Date of Service July 21, 2023 Assessment & Plan (1) Alcohol withdrawal: (2) Alcoholism: (3) Hypertension: (4) Hypomagnesemia: (5) Transaminitis: (6) GERD (gastroesophageal reflux disease): (7) COPD (chronic obstructive pulmonary disease): Plan Alcohol withdrawal/alcoholism- Patient has been a lifelong drinker Placed on AWSS On Librium tapering dose. Thiamine 100 mg IV every morning Folic acid 1 mg IV every morning IV fluids discontinued. Patient is tolerating oral diet Hypertension- Reports his blood pressure has been elevated in the past, but is not on medication at this point Started clonidine 0.2 mg p.o. twice daily Blood pressure stable on clonidine today Hydralazine 10 mg IV every 4 hours as needed systolic blood pressure greater than 160 if heart rate less than 70 Lopressor 5 mg IV every 4 hours as needed for systolic blood pressure greater than 160 if heart rate greater than 70 Hypomagnesemia- Magnesium 1.6 on admission Give magnesium sulfate 2 g IV Improved Transaminitis- Likely secondary to alcohol AST 61, ALT 60, alkaline phosphatase 107 CT abdomen showed hepatic steatosis. No cirrhosis seen. Abdominal distention Patient feels that his abdomen is distended subjectively Recent CT abdomen did not show any ascites or ileus Patient is eating 100% of his meals No nausea or vomiting Patient had a bowel movement today but says that he feels like he could have evacuated more. Ordered a bowel regimen Encourage ambulation Asked the nurse to inform me if he vomits Throat and mouth pain No oral thrush seen CT soft tissue of the neck was negative Ordered benzocaine for symptomatic relief Ordered nystatin in case there is thrush more internally that was not visible externally DVT prophylaxis: Lovenox Full code Disposition: Tomorrow he will be done with his Librium tapering. He did not want to go home today because of constipation. Continue to treat constipation Admission and Anticipated Discharge Date Admission Date: July 18, 2023 Subjective Patient complains of not feeling well. His belly still distended. He thinks he has not had a bowel movement despite the laxatives. Review of Systems Review of Systems: All systems reviewed & are unremarkable except as noted in Subjective Physical Exam Physical Exam: General: Awake, conversant Heart: S1, S2/regular rate and rhythm, no murmur rubs or gallops Lungs: Clear to auscultation bilaterally. Normal effort Abdomen: Soft/nontender/slightly distended. No hepatosplenomegaly. Positive bowel sounds Extremities: No clubbing/cyanosis. No edema Behavior: Appropriate, cooperative Results & Data Results & Data Vital Signs (Past 12 Hours) Vital Signs Temp Pulse Pulse Resp BP BP Pulse Ox 07/21/23 11:10 36.6 C 62 19 126/66 95 07/21/23 08:36 65 07/21/23 08:31 36.7 C 85 16 119/76 96 07/21/23 04:32 65 07/21/23 03:45 36.3 C L 77 18 138/104 H 96 O2 Del Method 07/21/23 11:10 Room Air 07/21/23 08:36 07/21/23 08:31 Room Air 07/21/23 04:32 07/21/23 03:45 Room Air PG Care Time/CCT Total # of Minutes Spent Total Time Spent with Patient: Total time spent is greater than 50% in coordination of care (as documented) at patient's floor/unit and/or counseling patient: Coding Level of Care Code 20715 SUB INP/OBS CARE 2/35MIN Diagnoses Alcohol withdrawal F10.939 Alcoholism F10.20 Hypertension I10 Hypomagnesemia E83.42 Transaminitis R74.01 GERD (gastroesophageal reflux disease) K21.9 COPD (chronic obstructive pulmonary disease) J44.9
[2023-07-21] MEDS: LORazepam 1 MG in SYRINGE 0.5 ML IV PRN ×2 (14:05→20:28)
[2023-07-21] MEDS: CHLORASEPTIC (PHENOL) 1.4% SOLN 180 ML BTL MT PRN (20:27)
[2023-07-21] MEDS ORDERED: POLYETHYLENE (MIRALAX) 17 GM PACK PO ONE (21:45)
--- NOTE | 2023-07-22 07:28 | XRay Report ---
KUB HISTORY: abdominal pain COMPARISON: Abdomen and pelvis CT 07/18/2023.. FINDINGS: The bowel gas pattern is unremarkable. There are no dilated loops of small bowel to suggest an obstruction. No renal calculi. No ureteral calculi. No pneumoperitoneum or pneumatosis. Prior ch olecystectomy. IMPRESSION: Nonobstructive bowel gas pattern. ACT 112: Negative or not required by law. Electronically signed by: Scott Esparza M.D. 07/22/2023 7:25 AM
[2023-07-22] MEDS: THIAMINE HCL 100 MG in SYRINGE 9 ML IV SCH (10:03)
[2023-07-22] MEDS: FOLIC ACID 1 MG in SYRINGE 9.8 ML IV SCH (10:03)
[2023-07-22] MEDS: RABEPRAZOLE 20 MG PO SCH (10:04)
[2023-07-22] MEDS: DOCUSATE SODIUM 100 MG CAP PO SCH ×2 (10:04→20:42)
[2023-07-22] MEDS: guaiFENesin 600 MG TABCR PO SCH ×2 (10:04→20:43)
[2023-07-22] MEDS: NYSTATIN SUSP 500,000 U/5 ML UDC PO SCH ×4 (10:06→20:43)
[2023-07-22] MEDS: ENOXAPARIN INJ 40 MG/0.4 ML SYR SQ SCH (10:07)
[2023-07-22] MEDS: cloNIDine HCL 0.1 MG TAB PO SCH ×2 (10:08→20:42)
[2023-07-22] MEDS: POLYETHYLENE (MIRALAX) 17 GM PACK PO SCH ×2 (10:23→20:44)
[2023-07-22] MEDS ORDERED: SIMETHICONE 80 MG CHEW PO ONE (10:51)
[2023-07-22] MEDS: LORazepam 1 MG TAB PO PRN ×2 (13:34→20:44)
--- NOTE | 2023-07-22 15:45 | Hospitalist Progress Note ---
Date of Service July 22, 2023 Assessment & Plan (1) Alcohol withdrawal: (2) Alcoholism: (3) Hypertension: (4) Hypomagnesemia: (5) Transaminitis: (6) GERD (gastroesophageal reflux disease): (7) COPD (chronic obstructive pulmonary disease): Plan Alcohol withdrawal/alcoholism- Patient has been a lifelong drinker Placed on AWSS Completed a dose of tapering Librium Thiamine 100 mg IV every morning Folic acid 1 mg IV every morning IV fluids discontinued. Patient is tolerating oral diet Hypertension- Reports his blood pressure has been elevated in the past, but is not on medication at this point Started clonidine 0.2 mg p.o. twice daily Blood pressure stable on clonidine today Hydralazine 10 mg IV every 4 hours as needed systolic blood pressure greater than 160 if heart rate less than 70 Lopressor 5 mg IV every 4 hours as needed for systolic blood pressure greater than 160 if heart rate greater than 70 Hypomagnesemia- Magnesium 1.6 on admission Give magnesium sulfate 2 g IV Improved Transaminitis- Likely secondary to alcohol AST 61, ALT 60, alkaline phosphatase 107 CT abdomen showed hepatic steatosis. No cirrhosis seen. Abdominal distention Patient feels that his abdomen is distended subjectively Recent CT abdomen did not show any ascites or ileus, KUB was essentially normal Patient is eating 100% of his meals No nausea or vomiting Patient had a bowel movement today but says that he feels like he could have evacuated more. Ordered a bowel regimen Encourage ambulation Ordered simethicone Throat and mouth pain No oral thrush seen CT soft tissue of the neck was negative Ordered benzocaine for symptomatic relief Ordered nystatin in case there is thrush more internally that was not visible externally DVT prophylaxis: Lovenox Full code Disposition: Awaiting evaluation by physical therapy, patient may need rehab Admission and Anticipated Discharge Date Admission Date: July 18, 2023 Subjective Patient seen and examined, still feels that his belly is distended although there is no objective evidence given KUB and CT abdomen Review of Systems Review of Systems: All systems reviewed are negative, apart from the ones contained in the history. Physical Exam Physical Exam: The patient is awake, alert and oriented 3, well developed and well nourished, normocephalic and atraumatic, lying in bed and in no acute distress. HEENT--PERRL, EOMI, mucous membranes and oropharynx mildly dry Neck--supple. No JVD. No bruits. Thyroid normal, trachea midline, no adenopathy. Heart--normal S1 and S2. No murmurs, rubs or gallops. Lungs--clear bilaterally, no respiratory distress, no accessory muscle use. Abdomen--normal bowel sounds and soft. Mild epigastric and left sided abdominal pain Extremities--no cyanosis or clubbing. No edema. Dermatologic--normal skin turgor, normal color, no abnormal lymph nodes, no rash. Neurologic--cranial nerves II through XII grossly intact. Rheumatologic--normal range of motion. Psychiatric--normal affect. Results & Data Results & Data Vital Signs (Past 12 Hours) Vital Signs Temp Pulse Pulse Resp BP Pulse Ox O2 Del Method 07/22/23 11:00 98.1 F 96 H 16 116/69 98 Room Air 07/22/23 10:00 68 07/22/23 07:17 97.7 F 88 18 147/89 H 97 Room Air PG Care Time/CCT Total # of Minutes Spent Total Time Spent with Patient: Total time spent is greater than 50% in coordination of care (as documented) at patient's floor/unit and/or counseling patient: Coding Level of Care Code 24448 SUB INP/OBS CARE 2/35MIN Diagnoses Alcohol withdrawal F10.939 Alcoholism F10.20 Hypertension I10 Hypomagnesemia E83.42 Transaminitis R74.01 GERD (gastroesophageal reflux disease) K21.9 COPD (chronic obstructive pulmonary disease) J44.9 Time Spent (min) 35
[2023-07-22] MEDS: SIMETHICONE 80 MG CHEW PO PRN (17:28)
[2023-07-22] MEDS: CHLORASEPTIC (PHENOL) 1.4% SOLN 180 ML BTL MT PRN (20:43)
[2023-07-23 07:56] LABS: Hematocrit (blood only) 39.3 % (42.0-52.0); Hemoglobin 13.5 g/dl (14.0-18.0); Mean Corpuscular Hemoglobin 32.8 pg (25.0-34.0); Mean Corpuscular Hgb Conc 34.4 g/dL (32.0-36.0); Mean Corpuscular Volume 95.4 fL (80.0-100.0); Mean Platelet Volume 9.3 fL (9.4-12.4); Platelet Count 285 K/uL (130-400); RDW Coefficient of Variation 13.2 % (11.5-14.5); Red Blood Count 4.12 M/uL (4.70-6.10); White Blood Count 7.73 K/ul (4.8-10.8)
[2023-07-23 08:53] LABS: BUN Creatinine Ratio 13.2 (10-20); Creatinine Clr Calc Pharmacy 102.2 ml/min; Est GFR (African American) 113.3 ml/min; Est GFR (Non-African American) 97.8 ml/min; Potassium 3.6 mmol/L (3.5-5.1)
[2023-07-23] MEDS: FOLIC ACID 1 MG in SYRINGE 9.8 ML IV SCH (08:58)
[2023-07-23] MEDS: THIAMINE HCL 100 MG in SYRINGE 9 ML IV SCH (08:58)
[2023-07-23] MEDS: RABEPRAZOLE 20 MG PO SCH (08:58)
[2023-07-23] MEDS: cloNIDine HCL 0.1 MG TAB PO SCH ×2 (08:59→20:35)
[2023-07-23] MEDS: POLYETHYLENE (MIRALAX) 17 GM PACK PO SCH ×2 (08:59→17:30)
[2023-07-23] MEDS: DOCUSATE SODIUM 100 MG CAP PO SCH ×2 (08:59→20:35)
[2023-07-23] MEDS: guaiFENesin 600 MG TABCR PO SCH ×2 (08:59→20:35)
[2023-07-23] MEDS: NYSTATIN SUSP 500,000 U/5 ML UDC PO SCH ×4 (08:59→20:36)
[2023-07-23] MEDS: ENOXAPARIN INJ 40 MG/0.4 ML SYR SQ SCH (08:59)
[2023-07-23] MEDS: PROMETHAZINE HCL 25 MG TAB PO PRN ×2 (09:55→22:08)
--- NOTE | 2023-07-23 12:24 | CT Scan Report ---
CT SCAN OF THE ABDOMEN AND PELVIS WITHOUT IV CONTRAST CLINICAL HISTORY: Bloating. COMPARISON STUDY: Abdominal CT dated 07/18/2023. TECHNIQUE: CT scan of the abdomen and pelvis is performed from the lung bases to the proximal femora. Images are reviewed in the axial, sagittal, and coronal planes. IV contrast was not administered for this examination. A dose lowering technique was utilized adhering to the principles of ALARA. CT DOSE: 1086.29 mGy.cm FINDINGS: Lung bases: The heart is normal in size and without pericardial effusion. There are coronary artery c alcifications. There is bibasilar scarring/atelectasis. The lung bases are otherwise clear. Liver: The unenhanced liver is enlarged, measuring up to 19.6 cm in length. The liver demonstrates di ffusely diminished attenuation indicating steatosis. Fatty sparing is seen adjacent to the hepatic hi lum. There is no intrahepatic biliary ductal dilatation. There are scattered calcified hepatic granul omas. Gallbladder: Surgically absent noting clips in the gallbladder fossa. Spleen: Normal in size and attenuation. There are scattered calcified splenic granulomas. Pancreas: The unenhanced pancreas is grossly unremarkable. Adrenal glands: Unremarkable. Kidneys: The unenhanced kidneys are normal in size and without hydronephrosis. There are no renal melina culi identified. There is no evidence of contour deforming renal mass lesion. Abdominal vasculature: The abdominal aorta is normal in course and caliber noting advanced atheroscle rotic calcification. Bowel: There are scattered colonic diverticula without CT evidence of acute diverticulitis. No bowel obstruction is seen. The appendix is well-visualized and normal. Peritoneum: There is no intraperitoneal free air or abdominal ascites. Lymphadenopathy: None. Pelvic viscera: The prostate gland is diminutive and heterogeneous. The bladder is decompressed and n ot well evaluated. Skeletal structures: The skeletal structures appear osteopenic. There is mild lumbosacral spondylosis . No lytic or blastic lesions are seen. There is avascular necrosis of the left femoral head. IMPRESSION: 1. No acute infectious or inflammatory findings are identified in the abdomen or pelvis. 2. Hepatomegaly and hepatic steatosis. 3. Avascular necrosis of the left femoral head. 4. Additional findings as above. ACT 112: Negative or not required by law. Electronically signed by: Bal Tucker M.D. 07/23/2023 12:23 PM
--- NOTE | 2023-07-23 12:30 | Hospitalist Progress Note ---
Date of Service July 23, 2023 Assessment & Plan (1) Alcohol withdrawal: (2) Alcoholism: (3) Hypertension: (4) Hypomagnesemia: (5) Transaminitis: (6) GERD (gastroesophageal reflux disease): (7) COPD (chronic obstructive pulmonary disease): Plan Alcohol withdrawal/alcoholism- Patient has been a lifelong drinker Placed on AWSS Completed a dose of tapering Librium Thiamine 100 mg IV every morning Folic acid 1 mg IV every morning IV fluids discontinued. Patient is tolerating oral diet Hypertension- Reports his blood pressure has been elevated in the past, but is not on medication at this point Started clonidine 0.2 mg p.o. twice daily Blood pressure stable on clonidine today Hydralazine 10 mg IV every 4 hours as needed systolic blood pressure greater than 160 if heart rate less than 70 Lopressor 5 mg IV every 4 hours as needed for systolic blood pressure greater than 160 if heart rate greater than 70 Hypomagnesemia- Magnesium 1.6 on admission Give magnesium sulfate 2 g IV Improved Transaminitis- Likely secondary to alcohol AST 61, ALT 60, alkaline phosphatase 107 CT abdomen showed hepatic steatosis. No cirrhosis seen. Abdominal distention Patient feels that his abdomen is distended subjectively Recent CT abdomen did not show any ascites or ileus, KUB was essentially normal Will repeat CT abdomen today Patient is eating 100% of his meals No nausea or vomiting Patient had a bowel movement today but says that he feels like he could have evacuated more. Ordered a bowel regimen Encourage ambulation Ordered simethicone Throat and mouth pain No oral thrush seen CT soft tissue of the neck was negative Ordered benzocaine for symptomatic relief Ordered nystatin in case there is thrush more internally that was not visible externally DVT prophylaxis: Lovenox Full code Disposition: Awaiting evaluation by physical therapy, patient may need rehab Admission and Anticipated Discharge Date Admission Date: July 18, 2023 Subjective Patient seen and examined, still feels that his belly is distended although there is no objective evidence given KUB and CT abdomen Review of Systems Review of Systems: All systems reviewed are negative, apart from the ones contained in the history. Physical Exam Physical Exam: The patient is awake, alert and oriented 3, well developed and well nourished, normocephalic and atraumatic, lying in bed and in no acute distress. HEENT--PERRL, EOMI, mucous membranes and oropharynx mildly dry Neck--supple. No JVD. No bruits. Thyroid normal, trachea midline, no adenopathy. Heart--normal S1 and S2. No murmurs, rubs or gallops. Lungs--clear bilaterally, no respiratory distress, no accessory muscle use. Abdomen--normal bowel sounds and soft. Mild epigastric and left sided abdominal pain Extremities--no cyanosis or clubbing. No edema. Dermatologic--normal skin turgor, normal color, no abnormal lymph nodes, no rash. Neurologic--cranial nerves II through XII grossly intact. Rheumatologic--normal range of motion. Psychiatric--normal affect. Results & Data Results & Data Vital Signs (Past 12 Hours) Vital Signs Temp Pulse Resp BP BP Pulse Ox O2 Del Method 07/23/23 11:42 98.1 F 65 17 122/70 98 Room Air 07/23/23 08:22 98.2 F 66 17 122/74 96 Room Air 07/23/23 05:03 97.3 F L 64 18 110/70 95 Room Air 07/23/23 02:07 98.2 F 87 16 159/92 H 98 Room Air PG Care Time/CCT Total # of Minutes Spent Total Time Spent with Patient: Total time spent is greater than 50% in coordination of care (as documented) at patient's floor/unit and/or counseling patient: Coding Level of Care Code 40082 SUB INP/OBS CARE 2/35MIN Diagnoses Alcohol withdrawal F10.939 Alcoholism F10.20 Hypertension I10 Hypomagnesemia E83.42 Transaminitis R74.01 GERD (gastroesophageal reflux disease) K21.9 COPD (chronic obstructive pulmonary disease) J44.9 Time Spent (min) 35
[2023-07-23] MEDS: SIMETHICONE 80 MG CHEW PO PRN ×2 (13:07→20:35)
[2023-07-23] MEDS ORDERED: POLYETHYLENE (MIRALAX) 17 GM PACK PO STA (21:13)
[2023-07-24 08:57] LABS: Creatinine Clr Calc Pharmacy 84.4 ml/min; Est GFR (African American) 102.9 ml/min; Est GFR (Non-African American) 88.8 ml/min
[2023-07-24] MEDS: THIAMINE HCL 100 MG in SYRINGE 9 ML IV SCH (09:21)
[2023-07-24] MEDS: FOLIC ACID 1 MG in SYRINGE 9.8 ML IV SCH (09:21)
[2023-07-24] MEDS: guaiFENesin 600 MG TABCR PO SCH ×2 (09:22→09:31)
[2023-07-24] MEDS: NYSTATIN SUSP 500,000 U/5 ML UDC PO SCH ×2 (09:23→14:18)
[2023-07-24] MEDS: RABEPRAZOLE 20 MG PO SCH (09:23)
[2023-07-24] MEDS: ENOXAPARIN INJ 40 MG/0.4 ML SYR SQ SCH (09:24)
[2023-07-24] MEDS: cloNIDine HCL 0.1 MG TAB PO SCH ×2 (09:24→09:26)
[2023-07-24] MEDS: DOCUSATE SODIUM 100 MG CAP PO SCH (09:29)
[2023-07-24] MEDS: POLYETHYLENE (MIRALAX) 17 GM PACK PO SCH (09:29)
--- NOTE | 2023-07-24 12:13 | Hospitalist Progress Note ---
Date of Service July 24, 2023 Assessment & Plan (1) Alcohol withdrawal: (2) Alcoholism: (3) Hypertension: (4) Hypomagnesemia: (5) Transaminitis: (6) GERD (gastroesophageal reflux disease): (7) COPD (chronic obstructive pulmonary disease): Plan Alcohol withdrawal/alcoholism- Patient has been a lifelong drinker Placed on AWSS Completed CIWA protocol Hypertension- Reports his blood pressure has been elevated in the past, but is not on medication at this point Started clonidine 0.2 mg p.o. twice daily Blood pressure stable on clonidine today Hydralazine 10 mg IV every 4 hours as needed systolic blood pressure greater than 160 if heart rate less than 70 Lopressor 5 mg IV every 4 hours as needed for systolic blood pressure greater than 160 if heart rate greater than 70 Hypomagnesemia- Magnesium 1.6 on admission Give magnesium sulfate 2 g IV Improved Transaminitis- Likely secondary to alcohol AST 61, ALT 60, alkaline phosphatase 107 CT abdomen showed hepatic steatosis. No cirrhosis seen. Abdominal distention Patient feels that his abdomen is distended subjectively Recent CT abdomen x2 did not show any ascites or ileus, KUB was essentially normal Will repeat CT abdomen today Patient is eating 100% of his meals No nausea or vomiting Ordered a bowel regimen Encourage ambulation Ordered simethicone Throat and mouth pain No oral thrush seen CT soft tissue of the neck was negative Ordered benzocaine for symptomatic relief Ordered nystatin in case there is thrush more internally that was not visible externally DVT prophylaxis: Lovenox Full code Disposition: Evaluated by physical therapy, determined that he does not need rehab, will discharge home tomorrow Admission and Anticipated Discharge Date Admission Date: July 18, 2023 Subjective Patient seen and examined, complains of some muscle cramps and pain in the back Review of Systems Review of Systems: All systems reviewed are negative, apart from the ones contained in the history. Physical Exam Physical Exam: The patient is awake, alert and oriented 3, well developed and well nourished, normocephalic and atraumatic, lying in bed and in no acute distress. HEENT--PERRL, EOMI, mucous membranes and oropharynx mildly dry Neck--supple. No JVD. No bruits. Thyroid normal, trachea midline, no adenopathy. Heart--normal S1 and S2. No murmurs, rubs or gallops. Lungs--clear bilaterally, no respiratory distress, no accessory muscle use. Abdomen--normal bowel sounds and soft. Mild epigastric and left sided abdominal pain Extremities--no cyanosis or clubbing. No edema. Dermatologic--normal skin turgor, normal color, no abnormal lymph nodes, no rash. Neurologic--cranial nerves II through XII grossly intact. Rheumatologic--normal range of motion. Psychiatric--normal affect. Results & Data Results & Data Vital Signs (Past 12 Hours) Vital Signs Temp Pulse Resp BP BP Pulse Ox O2 Del Method 07/24/23 10:23 92 H 110/72 07/24/23 09:15 98/65 L 07/24/23 07:28 97.3 F L 75 18 109/68 95 Room Air PG Care Time/CCT Total # of Minutes Spent Total Time Spent with Patient: Total time spent is greater than 50% in coordination of care (as documented) at patient's floor/unit and/or counseling patient: Coding Level of Care Code 78567 SUB INP/OBS CARE 2/35MIN Diagnoses Alcohol withdrawal F10.939 Alcoholism F10.20 Hypertension I10 Hypomagnesemia E83.42 Transaminitis R74.01 GERD (gastroesophageal reflux disease) K21.9 COPD (chronic obstructive pulmonary disease) J44.9 Time Spent (min) 35
--- NOTE | 2023-07-24 12:38 | Discharge Summary ---
Date of Service July 24, 2023 Admission HPI Per Admitting Provider The patient is a 63-year-old male with past medical history including alcoholism, GERD, and COPD, who comes into the emergency department at the insistence of his daughter, who is with him in the emergency department. He reports his last attempt at alcohol cessation was in 2019, and his last alcoholic drink was earlier in the day prior to arrival. He denies any recent travels or sick exposures. He has not had any issues with seizures in the past when going through withdrawal. He has been drinking all his life. Principal Diagnosis Alcohol abuse Discharge Exam The patient is awake, alert and oriented 3, well developed and well nourished, normocephalic and atraumatic, lying in bed and in no acute distress. HEENT--PERRL, EOMI, mucous membranes and oropharynx mildly dry Neck--supple. No JVD. No bruits. Thyroid normal, trachea midline, no adenopathy. Heart--normal S1 and S2. No murmurs, rubs or gallops. Lungs--clear bilaterally, no respiratory distress, no accessory muscle use. Abdomen--normal bowel sounds and soft. Mild epigastric and left sided abdominal pain Extremities--no cyanosis or clubbing. No edema. Dermatologic--normal skin turgor, normal color, no abnormal lymph nodes, no rash. Neurologic--cranial nerves II through XII grossly intact. Rheumatologic--normal range of motion. Psychiatric--normal affect. Discharge Data Allergies Allergy/AdvReac Type Severity Reaction Status Date / Time doxycycline AdvReac Nausea Verified 07/18/23 01:45 morphine AdvReac Nausea Verified 07/18/23 01:45 Consultations 07/18/23 01:25 ED Decision to Admit Stat Ordered Studies 07/18/23 06:38 CT Abd and Pelvis [CT abd pelvis wo con] Urgent 07/19/23 14:25 CT neck soft tissues [CT soft tissue neck w con] Urgent 07/23/23 09:59 CT Abd and Pelvis [CT abd pelvis wo con] Routine Hospital Course (1) Alcohol withdrawal: (2) Alcoholism: (3) Hypertension: (4) Hypomagnesemia: (5) Transaminitis: (6) GERD (gastroesophageal reflux disease): (7) COPD (chronic obstructive pulmonary disease): Plan Alcohol withdrawal/alcoholism- Patient has been a lifelong drinker Placed on AWSS Completed CIWA protocol Hypertension- Reports his blood pressure has been elevated in the past, but is not on medication at this point Started clonidine 0.2 mg p.o. twice daily Blood pressure stable on clonidine today Hydralazine 10 mg IV every 4 hours as needed systolic blood pressure greater than 160 if heart rate less than 70 Lopressor 5 mg IV every 4 hours as needed for systolic blood pressure greater than 160 if heart rate greater than 70 Hypomagnesemia- Magnesium 1.6 on admission Give magnesium sulfate 2 g IV Improved Transaminitis- Likely secondary to alcohol AST 61, ALT 60, alkaline phosphatase 107 CT abdomen showed hepatic steatosis. No cirrhosis seen. Abdominal distention Patient feels that his abdomen is distended subjectively Recent CT abdomen x2 did not show any ascites or ileus, KUB was essentially normal Will repeat CT abdomen today Patient is eating 100% of his meals No nausea or vomiting Ordered a bowel regimen Encourage ambulation Ordered simethicone Throat and mouth pain No oral thrush seen CT soft tissue of the neck was negative Ordered benzocaine for symptomatic relief Ordered nystatin in case there is thrush more internally that was not visible externally DVT prophylaxis: Lovenox Full code Disposition: Evaluated by physical therapy, determined that he does not need rehab, will discharge home tomorrow Total Time Total Time Spent Total Time Spent (In Minutes): 35 Discharge Plan Discharge Items Patient Disposition: Home - Self-Care Reason For Visit: ALCOHOL WITHDRAWAL, TRANSAMINITIS Discharge Diagnosis: Alcohol abuse Activity: Resume your previous activity Non-emergency contact: Primary Care Provider Call non-emergency contact if: you have any medication questions Follow-up/Referrals: PCP,NO [Primary Care Provider] - Diet: Regular Addtl Attending Provider Instructions: litigation services manager is in the process of helping you set up with a local PCP. Please make appointment to follow-up with him as soon as possible. Most importantly stop alcohol Pending Studies at Discharge: No Stand-Alone Forms: My [employer], Smoking Cessation Medications and DC Order Prescriptions: New simethicone [Gas Relief (simethicone)] 80 mg Tablet,Chewable 80 mg PO Q6H PRN (Reason: abdominal distention) 10 Days Qty: 20 0RF Continued prednisone 20 mg tablet 20 mg PO BID Rx Instructions: ordered 07/14/23 for 5 day promethazine 25 mg tablet 25 mg PO Q4 PRN (Reason: Nausea And Vomiting) rabeprazole 20 mg tablet,delayed release (DR/EC) 20 mg PO DAILY ondansetron 4 mg tablet,disintegrating 4 mg PO Q6 PRN (Reason: nausea or vomiting) Atrovent HFA 17 mcg/actuation HFA aerosol inhaler 2 puff INHALATION Q6 Discontinued amoxicillin 500 mg capsule 500 mg PO TID Rx Instructions: ordered 07/14/23 for 10 days Discharge Orders: Discharge Order (Routine); Ordered 07/24/23 Ordered By: Taylor Sebastian Admission Data Admit Date/Time: 07/18/23 01:31 Attending Provider: Taylor Sebastian Admit Provider: Asael Caraballo Primary Care Provider: PCP,NO Other Providers: Asael Caraballo Coding Level of Care Code 44698 INP/OBS DISCH >30 MIN Diagnoses Alcohol withdrawal F10.939 Alcoholism F10.20 Hypertension I10 Hypomagnesemia E83.42 Transaminitis R74.01 GERD (gastroesophageal reflux disease) K21.9 COPD (chronic obstructive pulmonary disease) J44.9 Time Spent (min) 35
[2023-07-24 13:34] LABS: Calcium 9.7 mg/dl (8.6-10.3); Creatinine Clr Calc Pharmacy 77.7 ml/min; Est GFR (African American) 93.1 ml/min; Est GFR (Non-African American) 80.3 ml/min
== END 2023-07-24 16:30 | disposition home or self-care (01) | DRG 897 ==
LOC: ED 22:42 → SUATTDRO 07-18 01:31 → EDINP 07-18 01:31 → 2E 07-18 02:59 → 3N 07-22 21:26

== ENCOUNTER 2024-05-20 19:41 | Inpatient (IN) ==
--- NOTE | 2024-05-20 20:00 | Emergency Department Note ---
Impression & Plan Alcoholism, Alcoholic intoxication ED Provider Note Provider: Skyler Garg MD CHIEF COMPLAINT: Alcohol abuse HISTORY OF PRESENT ILLNESS: Patient is a 63-year-old gentleman history of COPD, GERD, hypertension, and longstanding alcohol abuse presenting here today stating he wants to proceed with alcohol rehab. Patient states he has been drinking for most of his life and usually drinks about 15 beers a day. States he is looking for rehab placement. Reports he did have about 10 beers today and drank last about half hour prior to arrival. Only drinking stops the shaking he reports he does not feel that good. No trauma or significant pain reported. Denies hallucinations or history of seizure. Last in rehab several years ago at "[facility] "by his recollection and was not invited back. Has been working to try to quit smoking and smoking less and vaping a little. Reports some nausea at times. Denies any significant pain at this point. 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 States he is looking for rehab and to stop the significant alcohol abuse. States he feels tremulous in the inside. PAST MEDICAL HISTORY: As noted above MEDICATIONS: Reviewed home medications SOCIAL HISTORY: Alcohol abuse PHYSICAL EXAM: GENERAL: alert and oriented in no acute distress on stretcher although a little bit fidgety Head: normocephalic and atraumatic EYES: No injection, discharge or icterus. PERRL, EOMI. NECK: Trachea midline. Supple. ENT: Mucous membranes pink and moist. LUNGS: Airway patent. No retractions. Breath sounds clear HEART: Regular rate and rhythm. No chest wall tenderness ABDOMEN: Soft and non-tender, without guarding or rebound. SKIN: Acyanotic, warm, dry, without rashes EXTREMITIES: Without swelling, tenderness or deformity NEUROLOGICAL: No focal deficits. No aphasia. No facial droop or slurred speech. Normal strength and tone in the extremities. Sensation to gross touch normal. EK beats. Normal sinus rhythm. No PVC or PAC. No acute ST segment elevation or depression with QTc 444. CONTINUOUS CARDIAC MONITORING: was ordered and showed a heart rate of 70s to 80s bpm in normal sinus rhythm Patient's laboratory studies and imaging reviewed. Differential includes Alcohol intoxication, toxicologic, infection, hypoglycemia, electrolyte abnormalities, cardiac sources, intracerebral event, neurologic, trauma, as well as other pathologies. IMPRESSION/MEDICAL DECISION MAKING: Patient significant history of alcohol abuse. Denies any history of seizure however. Reports interest in rehab. Has also recent been try to quit smoking with a COPD history. Not hypoxic here. Little bit tremulous and given a bit of Ativan. Recent alcohol use within the past hour or 2. Basic blood work electrolytes sent. No pain complaint and benign abdomen on exam. Blood work here borderline anemia with minimal leukopenia. Mild chronic hyponatremia. No signs of renal dysfunction. Bilirubin normal with slight AST ALT alkaline phosphatase elevation. TSH normal. Negative urinalysis. Negative aspirin Tylenol level with a severely elevated alcohol level 377. Negative COVID testing here. Obviously patient with significant alcohol abuse problem. He is wishing for inpatient rehab. Given his significant alcohol intoxication will need to come down from this and be monitored for any significant withdrawal. Ativan was effective some in reducing some of his shakiness at this time. Is noted to be somewhat hypertensive here although unsure how much of this is withdrawal versus possibly some not well treated hypertension. Discussed with patient and him findings. Is somewhat drowsy on reassessment. Still requires time for the alcohol to process. Given his continued request for rehab discussed with the hospitalist further care in the hospital. DIAGNOSIS: Alcohol abuse/intoxication DISPOSITION: Hospitalist will evaluate Patient was agreeable with this plan. Past Med/Surg History Problem List (Updated 05/20/24 @ 22:08 by Skyler Garg M.D.) Alcoholic intoxication (Acute) COPD (chronic obstructive pulmonary disease) GERD (gastroesophageal reflux disease) Alcoholism (Acute) Transaminitis Hypomagnesemia Hypertension (Acute) Alcohol withdrawal (Acute) Social History Smoking Status: Current some day smoker Tobacco Type: Cigarettes Hx Alcohol Use: Yes Alcohol type: beer Hx Substance Use: No Preferred Language: Slovenian Communication Ability: Effective [employer] Required: No Beliefs That Will Affect Care: None Current Living Situation: Alone Feels Safe at Home: Yes Assistive Devices: None Allergies Allergies Allergy/AdvReac Type Severity Reaction Status Date / Time doxycycline AdvReac Intermediate Nausea Verified 02/01/24 19:10 morphine AdvReac Intermediate Nausea Verified 02/01/24 19:10 Home Meds Home Medications Medication Instructions Recorded Confirmed albuterol sulfate 90 mcg/actuation 2 puff inhalation .Q4-6H PRN 02/01/24 05/20/24 aerosol inhaler Shortness Of Breath Or Wheezing methylphenidate HCl 20 mg tablet 20 mg PO BID 02/01/24 05/20/24 omeprazole 40 mg capsule,delayed 40 mg PO QAM 02/01/24 05/20/24 release rabeprazole 20 mg tablet,delayed 20 mg PO DAILY 05/20/24 05/20/24 release Results & Data (ED) Vital Signs Vital Signs - 24 hr 05/20/24 19:42 05/20/24 19:42 05/20/24 19:44 Temperature 36.8 C 37 C Temperature Source Oral Temporal Artery Scan Pulse Rate 84 Pulse Rate [Apical] 88 Pulse Rhythm [Apical] Regular Pulse Strength [Apical] Normal Respiratory Rate 18 17 Respiratory Effort / Characteristics Non-Labored Respiratory Depth Normal Normal Respiratory Pattern Regular Blood Pressure 182/86 H Blood Pressure [Left Arm] 166/92 H Blood Pressure Mean 118 Blood Pressure Mean [Left Arm] 116 Blood Pressure Position [Left Arm] Sitting Pulse Oximetry 95 96 Oxygen Delivery Method Room Air Room Air Room Air Sepsis Recent Fever Within 48 Hours No Sepsis New/Unexplained Change in Mental Status No Sepsis Action Taken by Nursing No Action Required 05/20/24 20:12 05/20/24 21:42 05/20/24 23:00 Temperature Temperature Source Pulse Rate 77 Pulse Rate [Apical] 78 88 Pulse Rhythm [Apical] Regular Regular Pulse Strength [Apical] Normal Normal Respiratory Rate 18 18 Respiratory Effort / Characteristics Non-Labored Non-Labored Respiratory Depth Normal Normal Respiratory Pattern Regular Regular Blood Pressure Blood Pressure [Left Arm] 158/88 H 133/85 Blood Pressure Mean Blood Pressure Mean [Left Arm] 111 101 Blood Pressure Position [Left Arm] Lying Lying Pulse Oximetry 98 98 Oxygen Delivery Method Room Air Room Air Sepsis Recent Fever Within 48 Hours Sepsis New/Unexplained Change in Mental Status Sepsis Action Taken by Nursing Laboratory Data 05/20/24 20:16 05/20/24 20:16 Lab Results 05/20/24 05/20/24 Range/Units 20:16 20:25 WBC 4.72 L (4.8-10.8) K/ul RBC 4.15 L (4.70-6.10) M/uL Hgb 13.9 L (14.0-18.0) g/dl Hct 38.3 L (42.0-52.0) % MCV 92.3 (80.0-100.0) fL MCH 33.5 (25.0-34.0) pg MCHC 36.3 H (32.0-36.0) g/dL RDW Std Deviation 43.0 (36.4-46.3) fL RDW Coeff of [place] 12.6 (11.5-14.5) % Plt Count 161 (130-400) K/uL MPV 9.6 (9.4-12.4) fL Immature Gran % (Auto) 0.8 % Neut % (Auto) 56.2 % Lymph % (Auto) 21.6 % Placer % (Auto) 15.3 % Eos % (Auto) 4.2 % Baso % (Auto) 1.9 % Neut # (Auto) 2.65 (1.40-6.50) K/uL Lymph # (Auto) 1.02 L (1.20-3.40) K/uL Placer # (Auto) 0.72 H (0.11-0.59) K/uL Eos # (Auto) 0.20 (0.00-0.50) K/uL Baso # (Auto) 0.09 (0.00-0.20) K/uL Immature Gran # (Auto) 0.04 (0.01-0.20) K/uL Sodium 132 L (136-145) mmol/L Potassium 3.7 (3.5-5.1) mmol/L Chloride 96 L (98-107) mmol/L Carbon Dioxide 27 (21-32) mmol/L Anion Gap 9 (3-11) BUN 6 (6-23) mg/dl Creatinine 0.49 L (0.6-1.4) mg/dl Est Cr Clr Drug Dosing 146.1 ml/min eGFR 116.03 BUN/Creatinine Ratio 12.2 (10-20) Glucose 95 (70-99(Fasting)) mg/dl Calcium 9.1 (8.6-10.3) mg/dl Magnesium 1.9 (1.7-2.4) mg/dl Total Bilirubin 0.3 (0.2-1.0) mg/dl AST 93 H (13-39) U/L ALT 95 H (7-52) U/L Alkaline Phosphatase 114 H (34-104) U/L Total Protein 7.3 (6.0-8.3) gm/dl Albumin 4.4 (3.4-5.0) gm/dl Globulin 2.9 (2.5-4.0) gm/dl Albumin/Globulin Ratio 1.5 (0.9-2) TSH 1.960 (0.300-4.500) uIu/ml Urine Color Yellow Urine Appearance Clear (Clear) Urine pH 5.0 (4.5-7.5) Ur Specific [place] 1.003 (1.000-1.030) Urine Protein Negative (Negative) Urine Glucose (UA) Negative (Negative) Urine Ketones Negative (Negative) Urine Blood Negative (Negative) Urine Nitrite Negative (Negative) Urine Bilirubin Negative (Negative) Urine Urobilinogen Negative (Negative) Ur Leukocyte Esterase Negative (Negative) Salicylates < 3.0 L (3.0-30) mg/dl Urine Opiates Screen Neg (Neg) Ur Methadone, Qual Neg (Neg) Urine Fentanyl Screen Neg (Neg) Acetaminophen < 3 L (10-30) ug/ml Urine Barbiturates Neg (Neg) Ur Phencyclidine (PCP) Neg (Neg) U Amphetamin/Meth Scrn Neg (Neg) MDMA (Ecstasy) Screen Neg (Neg) U Benzodiazepines Scrn Neg (Neg) Ur Cocaine Metabolite Neg (Neg) U Marijuana (THC) Screen Neg (Neg) Ethyl Alcohol mg/dL 377.6 H (<10.0) mg/dl SARS-CoV-2, RNA, NAAT NEGATIVE (NEGATIVE) Administered Medications Discontinued Medications Thiamine HCl 100 mg/ Syringe 10 mls @ 2 mls/min IV NOW ONE Stop: 05/20/24 23:19 Last Admin: 05/20/24 23:40 Dose: 2 mls/min Documented By: MARGE Folic Acid 1 mg/ Syringe 10 mls @ 5 mls/min IV NOW ONE Stop: 05/20/24 23:16 Last Admin: 05/20/24 23:40 Dose: 5 mls/min Documented By: MARGE Sodium Chloride (Nss) 1,000 mls @ 999 mls/hr IV .Q1H1M ONE Stop: 05/21/24 00:06 Last Admin: 05/20/24 23:41 Dose: 999 mls/hr Documented By: MARGE Lorazepam (Lorazepam 1 Mg/1 Ml Syr Ed Inj Use) 1 mg IV ONE STA Stop: 05/20/24 20:18 Last Admin: 05/20/24 20:26 Dose: 1 mg Documented By: MARGE Discharge Plan Visit Data Chief Complaint: Detox Request Stated Complaint: ALCOHOL DETOX REQUEST ED Provider: Skyler Garg Discharge Problem: Alcoholism, Alcoholic intoxication Patient Disposition: Being Evaluated by Hospitalist Forms Stand Alone Forms: My [facility], Suicide Prevention Resources Prescriptions Prescriptions: No Action methylphenidate HCl 20 mg tablet 20 mg PO BID omeprazole 40 mg capsule,delayed release(DR/EC) 40 mg PO QAM albuterol sulfate 90 mcg/actuation HFA aerosol inhaler 2 puff INHALATION .Q4-6H PRN (Reason: Shortness Of Breath Or Wheezing) rabeprazole 20 mg tablet,delayed release (DR/EC) 20 mg PO DAILY Referrals Referrals: PCP,NO [Physician] -
[2024-05-20] MEDS: LORazepam 1 MG/1 ML SYR ED Inj Use IV STA (20:26)
[2024-05-20 20:37] LABS: Appearance Urine Clear (Clear); Bilirubin Urine Negative (Negative); Blood Urine Negative (Negative); Color Urine Yellow; Glucose Urine UA Negative (Negative); Ketones Urine Negative (Negative); Leukocyte Esterase Urine Negative (Negative); Nitrite Urine Negative (Negative); Protein Urine Negative (Negative); Specific Gravity Urine 1.003 (1.000-1.030); Urobilinogen Urine Negative (Negative)
[2024-05-20 20:54] LABS: Albumin Globulin Ratio 1.5 (0.9-2); Albumin Level 4.4 gm/dl (3.4-5.0); BUN Creatinine Ratio 12.2 (10-20); Bilirubin,Total 0.3 mg/dl (0.2-1.0); Calcium 9.1 mg/dl (8.6-10.3); Creatinine Clr Calc Pharmacy 146.1 ml/min; Globulin 2.9 gm/dl (2.5-4.0); Magnesium 1.9 mg/dl (1.7-2.4); Potassium 3.7 mmol/L (3.5-5.1); Total Protein 7.3 gm/dl (6.0-8.3)
[2024-05-20 21:00] LABS: Basophils # (auto) 0.09 K/uL (0.00-0.20); Basophils % (auto) 1.9 %; Eosinophils % (auto) 4.2 %; Hematocrit (blood only) 38.3 % (42.0-52.0); Hemoglobin 13.9 g/dl (14.0-18.0); Immature Granulocytes # (auto) 0.04 K/uL (0.01-0.20); Immature Granulocytes % (auto) 0.8 %; Lymphocytes # (auto) 1.02 K/uL (1.20-3.40); Lymphocytes % (auto) 21.6 %; Mean Corpuscular Hemoglobin 33.5 pg (25.0-34.0); Mean Corpuscular Hgb Conc 36.3 g/dL (32.0-36.0); Mean Corpuscular Volume 92.3 fL (80.0-100.0); Mean Platelet Volume 9.6 fL (9.4-12.4); Monocytes # (auto) 0.72 K/uL (0.11-0.59); Monocytes % (auto) 15.3 %; Neutrophils # (auto) 2.65 K/uL (1.40-6.50); Neutrophils % (auto) 56.2 %; Platelet Count 161 K/uL (130-400); RDW Coefficient of Variation 12.6 % (11.5-14.5); Red Blood Count 4.15 M/uL (4.70-6.10); White Blood Count 4.72 K/ul (4.8-10.8)
[2024-05-20 21:08] LABS: Thyroid Stimulating Hormone 1.96 uIu/ml (0.300-4.500)
[2024-05-20 21:19] LABS: Acetaminophen < 3 ug/ml (10-30); Salicylate < 3.0 mg/dl (3.0-30)
[2024-05-20 21:44] LABS: Amphetamines+Metham, Urine Neg (Neg); Barbiturates, Urine Neg (Neg); Benzodiazepine, Urine Neg (Neg); Cocaine, Urine Neg (Neg); Fentanyl, Urine Neg (Neg); MDMA (Ecstacy), Urine Neg (Neg); Marijuana, Urine Neg (Neg); Methadone, Urine Neg (Neg); Opiate, Urine Neg (Neg); Phencyclidine, Urine Neg (Neg)
--- NOTE | 2024-05-20 23:13 | History & Physical Report ---
Date of Service May 20, 2024 Assessment & Plan (1) Alcoholic intoxication: (2) Alcohol withdrawal: (3) Alcoholism: (4) COPD (chronic obstructive pulmonary disease): (5) GERD (gastroesophageal reflux disease): (6) Transaminitis: Plan Alcohol withdrawal/alcohol intoxication/alcoholism- Patient drinks on average 15 beers a day Lorazepam 1 mg IV every 6 hours standing order, hold for excess sedation AWSS protocol with IV Ativan escalating dose Thiamine 100 mg IV now and every morning Folic acid 1 mg IV now and every morning Give 1 L normal saline bolus, then LR at 80 mL/h x 2 L Zyprexa 5 mg IM every 6 hours as needed for agitation Transaminitis- CT of abdomen and pelvis from 02/01/2024 with hepatic steatosis, likely secondary to alcohol GERD- Pantoprazole 40 mg IV daily Zofran 4 mg IV every 6 hours as needed COPD- DuoNeb every 2 hours as needed Disposition- 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 Primary Care Provider: CHRIS Patiño The patient is a 63-year-old male with a past medical history including alcohol abuse, alcoholism, GERD, COPD, hypertension, and presently undergoing alcohol withdrawal. He told his daughter he has been drinking since age 7, and averages about 15 beers a day. He did have 10 beers today, and last drank about half hour prior to arrival. The last time he went to rehab was at [facility] several years ago. His daughter says that he was told that he could not go directly to rehab, because of his COPD, and had to walk as part of therapy. The patient himself is somewhat somnolent, and his daughter provides most of the HPI and review of systems Allergies Allergy/AdvReac Type Severity Reaction Status Date / Time doxycycline AdvReac Intermediate Nausea Verified 02/01/24 19:10 morphine AdvReac Intermediate Nausea Verified 02/01/24 19:10 Home Medications Medication Instructions Recorded Confirmed Type albuterol sulfate 90 mcg/actuation 2 puff inhalation .Q4-6H PRN 02/01/24 05/20/24 History aerosol inhaler Shortness Of Breath Or Wheezing methylphenidate HCl 20 mg tablet 20 mg PO BID 02/01/24 05/20/24 History omeprazole 40 mg capsule,delayed 40 mg PO QAM 02/01/24 05/20/24 History release rabeprazole 20 mg tablet,delayed 20 mg PO DAILY 05/20/24 05/20/24 History release Past Med/Surg History Problem List (Updated 05/20/24 @ 22:08 by Skyler Garg M.D.) Alcoholic intoxication (Acute) COPD (chronic obstructive pulmonary disease) GERD (gastroesophageal reflux disease) Alcoholism (Acute) Transaminitis Hypomagnesemia Hypertension (Acute) Alcohol withdrawal (Acute) Social History Smoking Status: Current every day smoker Tobacco Type: E-cigarettes / Vaping Hx Alcohol Use: Yes Alcohol type: beer Hx Substance Use: No Preferred Language: Icelandic Communication Ability: Effective Research Laboratory Technician Required: No Beliefs That Will Affect Care: None Current Living Situation: Alone Other Information That Helps Us Care for You: No Feels Safe at Home: Yes Safety Concerns: Feels Safe At This Time Assistive Devices: Glasses Review of Systems Review of Systems: Review of systems provided by his daughter, as noted above Physical Exam Physical Exam: The patient is somnolent, unresponsive, normocephalic and atraumatic, lying in bed and in no acute distress. HEENT--PERRL, EOMI, mucous membranes and oropharynx mildly dry. Neck--supple. No JVD. No bruits. Thyroid normal, trachea midline, no adenopathy. Heart--normal S1 and S2. No murmurs, rubs or gallops. Lungs--clear bilaterally, no respiratory distress, no accessory muscle use. Abdomen--normal bowel sounds and soft. Nontender. Nondistended, no hernias or masses, no organomegaly. Extremities--No edema. Dermatologic--normal skin turgor, normal color, no abnormal lymph nodes, no rash. Neurologic--cranial nerves II through XII grossly intact. Rheumatologic--normal range of motion. Psychiatric--somnolent Results & Data Results & Data Vital Signs (Past 12 Hours) Vital Signs Temp Pulse Pulse Resp BP BP Pulse Ox 05/20/24 20:12 77 05/20/24 19:44 37 C 84 17 182/86 H 96 05/20/24 19:42 36.8 C 88 18 166/92 H 95 05/20/24 19:42 O2 Del Method 05/20/24 20:12 05/20/24 19:44 Room Air 05/20/24 19:42 Room Air 05/20/24 19:42 Room Air Laboratory Results Laboratory Results WBC 4.72 K/ul (4.8-10.8) L 05/20/24 20:16 RBC 4.15 M/uL (4.70-6.10) L 05/20/24 20:16 Hgb 13.9 g/dl (14.0-18.0) L 05/20/24 20:16 Hct 38.3 % (42.0-52.0) L 05/20/24 20:16 MCV 92.3 fL (80.0-100.0) 05/20/24 20:16 MCH 33.5 pg (25.0-34.0) 05/20/24 20:16 MCHC 36.3 g/dL (32.0-36.0) H 05/20/24 20:16 RDW Std Deviation 43.0 fL (36.4-46.3) 05/20/24 20:16 RDW Coeff of Enriqueta 12.6 % (11.5-14.5) 05/20/24 20:16 Plt Count 161 K/uL (130-400) 05/20/24 20:16 MPV 9.6 fL (9.4-12.4) 05/20/24 20:16 Immature Gran % (Auto) 0.8 % 05/20/24 20:16 Neut % (Auto) 56.2 % 05/20/24 20:16 Lymph % (Auto) 21.6 % 05/20/24 20:16 [place] % (Auto) 15.3 % 05/20/24 20:16 Eos % (Auto) 4.2 % 05/20/24 20:16 Baso % (Auto) 1.9 % 05/20/24 20:16 Neut # (Auto) 2.65 K/uL (1.40-6.50) 05/20/24 20:16 Lymph # (Auto) 1.02 K/uL (1.20-3.40) L 05/20/24 20:16 [place] # (Auto) 0.72 K/uL (0.11-0.59) H 05/20/24 20:16 Eos # (Auto) 0.20 K/uL (0.00-0.50) 05/20/24 20:16 Baso # (Auto) 0.09 K/uL (0.00-0.20) 05/20/24 20:16 Immature Gran # (Auto) 0.04 K/uL (0.01-0.20) 05/20/24 20:16 Sodium 132 mmol/L (136-145) L 05/20/24 20:16 Potassium 3.7 mmol/L (3.5-5.1) 05/20/24 20:16 Chloride 96 mmol/L (98-107) L 05/20/24 20:16 Carbon Dioxide 27 mmol/L (21-32) 05/20/24 20:16 Anion Gap 9 (3-11) 05/20/24 20:16 BUN 6 mg/dl (6-23) 05/20/24 20:16 Creatinine 0.49 mg/dl (0.6-1.4) L 05/20/24 20:16 Est Cr Clr Drug Dosing 146.1 ml/min 05/20/24 20:16 eGFR 116.03 05/20/24 20:16 BUN/Creatinine Ratio 12.2 (10-20) 05/20/24 20:16 Glucose 95 mg/dl (70-99(Fasting)) 05/20/24 20:16 Calcium 9.1 mg/dl (8.6-10.3) 05/20/24 20:16 Magnesium 1.9 mg/dl (1.7-2.4) 05/20/24 20:16 Total Bilirubin 0.3 mg/dl (0.2-1.0) 05/20/24 20:16 AST 93 U/L (13-39) H 05/20/24 20:16 ALT 95 U/L (7-52) H 05/20/24 20:16 Alkaline Phosphatase 114 U/L (34-104) H 05/20/24 20:16 Total Protein 7.3 gm/dl (6.0-8.3) 05/20/24 20:16 Albumin 4.4 gm/dl (3.4-5.0) 05/20/24 20:16 Globulin 2.9 gm/dl (2.5-4.0) 05/20/24 20:16 Albumin/Globulin Ratio 1.5 (0.9-2) 05/20/24 20:16 TSH 1.960 uIu/ml (0.300-4.500) 05/20/24 20:16 Urine Color Yellow 05/20/24 20:25 Urine Appearance Clear (Clear) 05/20/24 20:25 Urine pH 5.0 (4.5-7.5) 05/20/24 20:25 Ur Specific Smilax 1.003 (1.000-1.030) 05/20/24 20:25 Urine Protein Negative (Negative) 05/20/24 20:25 Urine Glucose (UA) Negative (Negative) 05/20/24 20: Urine Ketones Negative (Negative) 05/20/24 20:25 Urine Blood Negative (Negative) 05/20/24 20:25 Urine Nitrite Negative (Negative) 05/20/24 20:25 Urine Bilirubin Negative (Negative) 05/20/24 20:25 Urine Urobilinogen Negative (Negative) 05/20/24 20:25 Ur Leukocyte Esterase Negative (Negative) 05/20/24 20:25 Salicylates < 3.0 mg/dl (3.0-30) L 05/20/24 20:16 Urine Opiates Screen Neg (Neg) 05/20/24 20:25 Ur Methadone, Qual Neg (Neg) 05/20/24 20:25 Urine Fentanyl Screen Neg (Neg) 05/20/24 20:25 Acetaminophen < 3 ug/ml (10-30) L 05/20/24 20:16 Urine Barbiturates Neg (Neg) 05/20/24 20:25 Ur Phencyclidine (PCP) Neg (Neg) 05/20/24 20:25 U Amphetamin/Meth Scrn Neg (Neg) 05/20/24 20:25 MDMA (Ecstasy) Screen Neg (Neg) 05/20/24 20:25 U Benzodiazepines Scrn Neg (Neg) 05/20/24 20:25 Ur Cocaine Metabolite Neg (Neg) 05/20/24 20:25 U Marijuana (THC) Screen Neg (Neg) 05/20/24 20:25 Ethyl Alcohol mg/dL 377.6 mg/dl (<10.0) H 05/20/24 20:16 SARS-CoV-2, RNA, NAAT NEGATIVE (NEGATIVE) 05/20/24 20:25 Code Status & VTE Plan Code Status Full code VTE Prophylaxis Plan VTE Prophylaxis will be ordered: Yes PG Care Time/CCT Total # of Minutes Spent Total Time Spent with Patient: Total time spent is greater than 50% in coordination of care (as documented) at patient's floor/unit and/or counseling patient: Coding Level of Care Code 61882 INT INP/OBS CARE 3/75MIN Diagnoses Alcoholic intoxication F10.929 Alcohol withdrawal F10.939 Alcoholism F10.20 COPD (chronic obstructive pulmonary disease) J44.9 GERD (gastroesophageal reflux disease) K21.9 Transaminitis R74.01
[2024-05-20] MEDS: FOLIC ACID 1 MG in SYRINGE 9.8 ML IV ONE (23:40)
[2024-05-20] MEDS: THIAMINE HCL 100 MG in SYRINGE 9 ML IV ONE (23:40)
[2024-05-20] MEDS: SODIUM CHLORIDE 0.9% 1,000 ML IV ONE (23:41)
[2024-05-21] MEDS ORDERED: ONDANSETRON INJ 2 MG/ML 2 ML VIAL IV PRN (00:54)
[2024-05-21] MEDS: LACTATED RINGER'S 1,000 ML IV SCH (01:09)
[2024-05-21] MEDS: LORazepam 2 MG/1 ML VIAL IV SCH (01:11)
[2024-05-21] MEDS ORDERED: LORazepam 2 MG/1 ML VIAL IV PRN (03:52)
[2024-05-21] MEDS ORDERED: Ativan IV Alcohol Withdrawal--Active Protocol IV PRN (03:52)
[2024-05-21] MEDS ORDERED: ALBUT/IPRATROP 3MG/0.5MG NEB 3 ML VIAL NEB PRN (03:59)
[2024-05-21] MEDS ORDERED: OLANZapine 10 MG/2.1 ML SDV IM PRN (04:00)
[2024-05-21] MEDS ORDERED: chlordiazePOXIDE ALCOHOL WITHDRAWL 50MG PO STA (05:10)
[2024-05-21] MEDS: LORazepam 2 MG/1 ML VIAL IV PRN ×2 (05:21→09:44)
[2024-05-21] MEDS: chlordiazePOXIDE HCl 25 MG CAP PO SCH ×2 (05:29→05:30)
[2024-05-21] MEDS: PANTOprazole 40 MG/10 ML SYR IV SCH (08:22)
[2024-05-21] MEDS: HEPARIN SOD 5,000 UNIT/0.5 ML VIAL SQ SCH (08:22)
[2024-05-21] MEDS: FOLIC ACID 1 MG in SYRINGE 9.8 ML IV SCH (08:22)
[2024-05-21] MEDS: THIAMINE HCL 100 MG in SYRINGE 9 ML IV SCH (08:22)
[2024-05-21] MEDS: MULTIVITAMIN TAB PO SCH (09:44)
--- NOTE | 2024-05-21 11:46 | Electrocardiogram Report ---
Test Reason : Blood Pressure : */* mmHG Vent. Rate : 74 BPM Atrial Rate : 74 BPM P-R Int : 138 ms QRS Dur : 92 ms QT Int : 400 ms P-R-T Axes : 49 35 44 degrees QTcB Int : 444 ms Normal sinus rhythm Normal ECG When compared with ECG of 17-Jul-2023 23:06, No significant change was found Confirmed by Michael Pisano [id number]) on 05/21/2024 11:46:21 AM Referred By: REFERRED SELF Confirmed By: Michael Pisano
[2024-05-21] MEDS: PROMETHAZINE 12.5 MG/50.5 ML BAG IV PRN (13:59)
--- NOTE | 2024-05-21 14:23 | Hospitalist Progress Note ---
Date of Service May 21, 2024 Assessment & Plan (1) Alcohol withdrawal: Plan: Alcohol withdrawal/alcohol intoxication/alcoholism-alcohol level 377 on admission and last drink 05/20. Patient drinks on average 15 beers a day but only drank 10 beers on the day of admission Continue Librium taper with as needed IV Ativan based on AWSS protocol Change IV folic acid and thiamine to p.o. folic acid and thiamine, add multivitamin daily Discontinue IV fluids and advance diet to regular Zyprexa 5 mg IM every 6 hours as needed for agitation and add promethazine as needed nausea at his request-discontinue Zofran which he says does not work for him He is considering inpatient versus outpatient alcohol rehab-he has been to overnight rehab in the past for 30 days at [place], but was told he could not go there anymore because of his COPD? Will ask case management to look into this Continue telemetry monitoring and seizure precautions (2) Transaminitis: Plan: Total bilirubin normal but AST and ALT as well as alkaline phosphatase are rising-this is likely secondary to alcoholic hepatitis APAP level negative, urine drug screen negative Previous CT of abdomen and pelvis from 02/01/2024 with hepatic steatosis and he is s/p cholecystectomy. No hepatomegaly noted on physical exam here Encouraged alcohol cessation Follow LFTs in the morning (3) Hyponatremia: Plan: Sodium 125 on admission likely secondary to beer Potomania. Sodium now improved to 132 with isotonic fluids No further need for IV fluids and will advance diet Follow BMP (4) COPD (chronic obstructive pulmonary disease): Plan: No acute issues, not requiring oxygen Continue DuoNeb every 2 hours as needed (5) GERD (gastroesophageal reflux disease): Plan: Change IV Protonix to po PPI as diet has been advanced no acute issues Plan DVT prophylaxis-heparin SQ Disposition-continued stay on PCU, eventually discharge either to home or possibly to inpatient alcohol rehab-case management consulted Admission and Anticipated Discharge Date Admission Date: May 20, 2024 Subjective Patient reports feeling shaky all over and nauseated at times. Denies chest pain or shortness of breath, no abdominal pains. He denies any history of s eizures with alcohol withdrawal in the past. Telemetry with sinus rhythm and sinus tachycardia with rates in the 80s to low 100s Physical Exam Constitutional: WD/WN, vitals as above Respiratory: normal respiratory effort, lungs clear to auscultation Cardiovascular: RRR, no murmur, no edema Gastrointestinal (Abdomen): normal bowel sounds, soft, nontender, no hepatosplenomegaly Neurologic: Motor/Sensory: + tremor (Generalized resting and action tremor in arms and trunk) Psychiatric: A+Ox3, euthymic affect Results & Data Results & Data Vital Signs (Past 12 Hours) Vital Signs Temp Pulse Pulse Resp BP BP Pulse Ox 05/21/24 13:55 101 H 18 174/97 H 96 05/21/24 10:57 36.7 C 106 H 18 161/85 H 97 05/21/24 09:40 110 H 18 184/121 H 97 05/21/24 09:00 05/21/24 08:05 95 H 05/21/24 07:21 36.7 C 94 H 94 H 160/89 H 95 05/21/24 02:43 36.6 C 86 16 135/72 94 O2 Del Method 05/21/24 13:55 Room Air 05/21/24 10:57 Room Air 05/21/24 09:40 Room Air 05/21/24 09:00 Room Air 05/21/24 08:05 05/21/24 07:21 Room Air 05/21/24 02:43 Room Air Laboratory Results CBC, CMP, magnesium reviewed PG Care Time/CCT Total # of Minutes Spent Total Time Spent with Patient: Total time spent is greater than 50% in coordination of care (as documented) at patient's floor/unit and/or counseling patient: Coding Level of Care Code 16050 SUB INP/OBS CARE 2/35MIN Diagnoses Alcohol withdrawal F10.939 Transaminitis R74.01 Hyponatremia E87.1 COPD (chronic obstructive pulmonary disease) J44.9 GERD (gastroesophageal reflux disease) K21.9
[2024-05-21] MEDS: MAGNESIUM SULFATE / D5W 1 GM/100 ML BAG IV ONE (16:24)
[2024-05-21] MEDS: LORazepam 2 MG/1 ML VIAL IV STA (17:38)
[2024-05-22 06:24] LABS: Albumin Level 3.9 gm/dl (3.4-5.0); Bilirubin Direct 0.1 mg/dl (0-0.2); Bilirubin,Total 0.6 mg/dl (0.2-1.0); Calcium 9.1 mg/dl (8.6-10.3); Creatinine Clr Calc Pharmacy 110.2 ml/min; Magnesium 1.9 mg/dl (1.7-2.4); Potassium 3.5 mmol/L (3.5-5.1)
[2024-05-22] MEDS: THIAMINE HCL 100 MG TAB PO SCH (08:07)
[2024-05-22] MEDS: FOLIC ACID 1 MG TAB PO SCH (08:08)
[2024-05-22] MEDS: PANTOprazole 40 MG TAB PO SCH (08:08)
--- NOTE | 2024-05-22 12:12 | Hospitalist Progress Note ---
Date of Service May 22, 2024 Assessment & Plan (1) Alcohol withdrawal: Plan: Alcohol withdrawal/alcohol intoxication/alcoholism-alcohol level 377 on admission and last drink 05/20. Patient drinks on average 15 beers a day but only drank 10 beers on the day of admission Continue Librium taper with as needed IV Ativan based on AWSS protocol Change IV folic acid and thiamine to p.o. folic acid and thiamine, add multivitamin daily Regular diet Zyprexa 5 mg IM every 6 hours as needed for agitation and add promethazine as needed nausea at his request-discontinue Zofran which he says does not work for him He is considering inpatient versus outpatient alcohol rehab-he has been to overnight rehab in the past for 30 days at [place], but was told he could not go there anymore because of his COPD? Will ask case management to look into this Continue telemetry monitoring and seizure precautions (2) Transaminitis: Plan: Total bilirubin normal but AST and ALT as well as alkaline phosphatase are rising-this is likely secondary to alcoholic hepatitis APAP level negative, urine drug screen negative Previous CT of abdomen and pelvis from 02/01/2024 with hepatic steatosis and he is s/p cholecystectomy. No hepatomegaly noted on physical exam here Encouraged alcohol cessation LFTs improving (3) Hyponatremia: Plan: Sodium 125 on admission likely secondary to beer Potomania. Resolved Follow BMP (4) COPD (chronic obstructive pulmonary disease): Plan: No acute issues, not requiring oxygen Continue DuoNeb every 2 hours as needed (5) GERD (gastroesophageal reflux disease): Plan: Change IV Protonix to po PPI as diet has been advanced no acute issues Plan DVT prophylaxis-heparin SQ Disposition-continued stay on PCU, eventually discharge either to home or possibly to inpatient alcohol rehab-case management consulted Admission and Anticipated Discharge Date Admission Date: May 20, 2024 Subjective Patient was seen and examined at 11:05 AM. Denies chest pain or shortness of breath. Patient is scoring 6 on the CIWA scale. Review of Systems Review of Systems: All systems reviewed & are unremarkable except as noted in Subjective Physical Exam Physical Exam: General: Awake, conversant Heart: S1, S2/regular rate and rhythm, no murmur rubs or gallops Lungs: Clear to auscultation bilaterally. Normal effort Abdomen: Soft/nontender/nondistended. No hepatosplenomegaly Extremities: No clubbing/cyanosis. No edema. Left upper extremity dressing on (recent skin cancer removal). Behavior: Appropriate, cooperative Results & Data Results & Data Vital Signs (Past 12 Hours) Vital Signs Temp Pulse Resp BP Pulse Ox O2 Del Method 05/22/24 10:43 36.6 C 100 H 18 168/97 H 96 Room Air 05/22/24 09:09 37.0 C 102 H 20 161/100 H 05/22/24 08:00 Room Air 05/22/24 07:48 36.7 C 84 18 169/91 H 96 Room Air 05/22/24 06:03 91 H 179/106 H 05/22/24 03:29 36.8 C 76 16 196/97 H 98 Room Air 05/22/24 01:04 192/99 H Laboratory Results Abnormal lab results 05/22/24 Range/Units 05:47 AST 55 H (13-39) U/L ALT 75 H (7-52) U/L PG Care Time/CCT Total # of Minutes Spent Total Time Spent with Patient: Total time spent is greater than 50% in coordination of care (as documented) at patient's floor/unit and/or counseling patient: Coding Level of Care Code 90459 SUB INP/OBS CARE 2/35MIN Diagnoses Alcohol withdrawal F10.939 Transaminitis R74.01 Hyponatremia E87.1 COPD (chronic obstructive pulmonary disease) J44.9 GERD (gastroesophageal reflux disease) K21.9
[2024-05-23] MEDS: chlordiazePOXIDE HCl 25 MG CAP PO SCH (06:25)
[2024-05-23] MEDS: MUPIROCIN 2% OINT 22 GM TUBE EXT SCH (12:58)
[2024-05-23] MEDS: cephALEXin 500 MG CAP PO SCH (13:03)
--- NOTE | 2024-05-23 13:16 | Hospitalist Progress Note ---
Date of Service May 23, 2024 Assessment & Plan (1) Alcohol withdrawal: Plan: Alcohol withdrawal/alcohol intoxication/alcoholism-alcohol level 377 on admission and last drink 05/20. Patient drinks on average 15 beers a day but only drank 10 beers on the day of admission Continue Librium taper with as needed IV Ativan based on AWSS protocol Change IV folic acid and thiamine to p.o. folic acid and thiamine, add multivitamin daily Regular diet Zyprexa 5 mg IM every 6 hours as needed for agitation and add promethazine as needed nausea at his request-discontinue Zofran which he says does not work for him He is considering inpatient versus outpatient alcohol rehab-he has been to overnight rehab in the past for 30 days at [place], but was told he could not go there anymore because of his COPD? Will ask case management to look into this Continue telemetry monitoring and seizure precautions (2) Transaminitis: Plan: Total bilirubin normal but AST and ALT as well as alkaline phosphatase are rising-this is likely secondary to alcoholic hepatitis APAP level negative, urine drug screen negative Previous CT of abdomen and pelvis from 02/01/2024 with hepatic steatosis and he is s/p cholecystectomy. No hepatomegaly noted on physical exam here Encouraged alcohol cessation LFTs improving (3) Hyponatremia: Plan: Sodium 125 on admission likely secondary to beer Potomania. Resolved Follow BMP (4) COPD (chronic obstructive pulmonary disease): Plan: No acute issues, not requiring oxygen Continue DuoNeb every 2 hours as needed (5) GERD (gastroesophageal reflux disease): Plan: Change IV Protonix to po PPI as diet has been advanced no acute issues (6) Skin wound from surgical incision: Plan: Some redness noted around the surgical incision site. No warmth. Could be an allergic reaction to the tape Per nurse, there was some yellowish discharge noted from the incision site Patient spoke to on-call primary grade teacher who recommended p.o. Keflex and mupirocin. Ordered. Plan DVT prophylaxis-heparin SQ Disposition-continued stay on PCU, eventually discharge either to home or possibly to inpatient alcohol rehab-case management consulted Admission and Anticipated Discharge Date Admission Date: May 20, 2024 Subjective Patient was seen and examined at 10:20 AM. He raised concerns about his left arm wound being red.. Nurse stated that there is a yellow discharge from the wound. Wound care consulted yesterday but no notes from wound care. Patient called his primary grade teacher in my presence who recommended p.o. Keflex and external mupirocin Review of Systems Review of Systems: All systems reviewed & are unremarkable except as noted in Subjective Physical Exam Physical Exam: General: Awake, conversant Heart: S1, S2/regular rate and rhythm, no murmur rubs or gallops Lungs: Clear to auscultation bilaterally. Normal effort Abdomen: Soft/nontender/nondistended. No hepatosplenomegaly Extremities: No clubbing/cyanosis. No edema. Left upper extremity dressing on (recent skin cancer removal). Removed the dressing. Noticed some redness around the surgical site. Not warm to touch. Per nurse, there was yellow discharge from the incision site earlier. Behavior: Appropriate, cooperative Results & Data Results & Data Vital Signs (Past 12 Hours) Vital Signs Temp Pulse Pulse Resp BP Pulse Ox O2 Del Method 05/23/24 12:00 36.7 C 116 H 21 147/84 H 97 Room Air 05/23/24 08:51 Room Air 05/23/24 08:02 36.7 C 114 H 20 159/84 H 94 Room Air 05/23/24 07:55 37.0 C 96 H 19 119/63 95 Room Air 05/23/24 07:32 86 05/23/24 03:35 36.7 C 82 20 139/82 97 Room Air PG Care Time/CCT Total # of Minutes Spent Total Time Spent with Patient: Total time spent is greater than 50% in coordination of care (as documented) at patient's floor/unit and/or counseling patient: Coding Level of Care Code 90939 SUB INP/OBS CARE 2/35MIN Diagnoses Alcohol withdrawal F10.939 Transaminitis R74.01 Hyponatremia E87.1 COPD (chronic obstructive pulmonary disease) J44.9 GERD (gastroesophageal reflux disease) K21.9 Skin wound from surgical incision T14.8XXA
[2024-05-23] MEDS: METOPROLOL TARTRATE 1 MG/ML VIAL IV STA (17:13)
[2024-05-24 06:59] LABS: Hematocrit (blood only) 39.6 % (42.0-52.0); Hemoglobin 13.6 g/dl (14.0-18.0); Mean Corpuscular Hemoglobin 33.1 pg (25.0-34.0); Mean Corpuscular Hgb Conc 34.3 g/dL (32.0-36.0); Mean Corpuscular Volume 96.4 fL (80.0-100.0); Mean Platelet Volume 9.7 fL (9.4-12.4); Platelet Count 187 K/uL (130-400); RDW Coefficient of Variation 13.1 % (11.5-14.5); RDW Standard Deviation 46.3 fL (36.4-46.3); Red Blood Count 4.11 M/uL (4.70-6.10); White Blood Count 6.81 K/ul (4.8-10.8)
--- NOTE | 2024-05-24 11:35 | Hospitalist Progress Note ---
Date of Service May 24, 2024 Assessment & Plan (1) Alcohol withdrawal: Plan: Alcohol withdrawal/alcohol intoxication/alcoholism-alcohol level 377 on admission and last drink 05/20. Patient drinks on average 15 beers a day but only drank 10 beers on the day of admission Continue Librium taper with as needed IV Ativan based on AWSS protocol. Will finish Librium taper today. Change IV folic acid and thiamine to p.o. folic acid and thiamine, add multivitamin daily Regular diet Zyprexa 5 mg IM every 6 hours as needed for agitation and add promethazine as needed nausea at his request-discontinue Zofran which he says does not work for him He is considering inpatient versus outpatient alcohol rehab-he has been to overnight rehab in the past for 30 days at [place], but was told he could not go there anymore because of his COPD? Will ask case management to look into this. Although patient is saying that he would like to go home prior to going to rehab. Continue telemetry monitoring and seizure precautions Today 05/24, nurse raised some questions about confusion. Patient says that Librium is making his brain foggy. He should be done with his Librium today. He is willing to take the last 2 doses to complete the taper. Plan to discharge him tomorrow provided he is not encephalopathic (2) Transaminitis: Plan: Total bilirubin normal but AST and ALT as well as alkaline phosphatase are rising-this is likely secondary to alcoholic hepatitis APAP level negative, urine drug screen negative Previous CT of abdomen and pelvis from 02/01/2024 with hepatic steatosis and he is s/p cholecystectomy. No hepatomegaly noted on physical exam here Encouraged alcohol cessation LFTs improving (3) Hyponatremia: Plan: Sodium 125 on admission likely secondary to beer Potomania. Resolved Follow BMP (4) COPD (chronic obstructive pulmonary disease): Plan: No acute issues, not requiring oxygen Continue DuoNeb every 2 hours as needed (5) GERD (gastroesophageal reflux disease): Plan: Change IV Protonix to po PPI as diet has been advanced no acute issues (6) Skin wound from surgical incision: Plan: Some redness noted around the surgical incision site. No warmth, swelling or edema. Could be an allergic reaction to the tape Per nurse, there was some yellowish discharge noted from the incision site on 05/23. No discharge today 05/24 Patient spoke to on-call outreach liaison who recommended p.o. Keflex and mupirocin. Ordered. Plan DVT prophylaxis-heparin SQ Disposition-continued stay on PCU, eventually discharge either to home or possibly to inpatient alcohol rehab-case management consulted Admission and Anticipated Discharge Date Admission Date: May 20, 2024 Subjective Patient was seen and examined at 9:40 AM along with nurse in the room. Per nurse, the patient is slightly confused about his medications. Although the patient is AO x 3. Patient is still anxious about his left upper extremity wound. Review of Systems Review of Systems: All systems reviewed & are unremarkable except as noted in Subjective Physical Exam Physical Exam: General: Awake, conversant Heart: S1, S2/regular rate and rhythm, no murmur rubs or gallops Lungs: Clear to auscultation bilaterally. Normal effort Abdomen: Soft/nontender/nondistended. No hepatosplenomegaly Extremities: No clubbing/cyanosis. No edema. Left upper extremity dressing on (recent skin cancer removal). Removed the dressing. Noticed some redness around the surgical site. Not warm to touch. No swelling noted. There is no discharge from the surgical incision. Behavior: Appropriate, cooperative Results & Data Results & Data Vital Signs (Past 12 Hours) Vital Signs Temp Pulse Resp BP Pulse Ox O2 Del Method 05/24/24 09:38 Room Air 05/24/24 07:52 36.8 C 108 H 17 122/80 94 Room Air 05/24/24 03:00 36.9 C 80 16 128/84 97 Room Air Laboratory Results Abnormal lab results 05/24/24 Range/Units 06:22 RBC 4.11 L (4.70-6.10) M/uL Hgb 13.6 L (14.0-18.0) g/dl Hct 39.6 L (42.0-52.0) % PG Care Time/CCT Total # of Minutes Spent Total Time Spent with Patient: Total time spent is greater than 50% in coordination of care (as documented) at patient's floor/unit and/or counseling patient: Coding Level of Care Code 00954 SUB INP/OBS CARE 2/35MIN Diagnoses Alcohol withdrawal F10.939 Transaminitis R74.01 Hyponatremia E87.1 COPD (chronic obstructive pulmonary disease) J44.9 GERD (gastroesophageal reflux disease) K21.9 Skin wound from surgical incision T14.8XXA
[2024-05-24] MEDS: HYDROCORTISONE 1% CRM 30 GM TUBE EXT PRN (14:48)
[2024-05-24] MEDS: SENNA 8.6 MG TAB PO SCH (17:26)
[2024-05-24] MEDS ORDERED: DOCUSATE SODIUM 100 MG CAP PO SCH (21:00)
[2024-05-25 07:52] VITALS: RESP 16; TEMP 98.6; O2SAT 97
--- NOTE | 2024-05-25 08:58 | Discharge Summary ---
Date of Service May 25, 2024 Admission HPI Per Admitting Provider The patient is a 63-year-old male with a past medical history including alcohol abuse, alcoholism, GERD, COPD, hypertension, and presently undergoing alcohol withdrawal. He told his daughter he has been drinking since age 7, and averages about 15 beers a day. He did have 10 beers today, and last drank about half hour prior to arrival. The last time he went to rehab was at [facility] several years ago. His daughter says that he was told that he could not go directly to rehab, because of his COPD, and had to walk as part of therapy. The patient himself is somewhat somnolent, and his daughter provides most of the HPI and review of systems Admission Exam Per Admitting Provider The patient is somnolent, unresponsive, normocephalic and atraumatic, lying in bed and in no acute distress. HEENT--PERRL, EOMI, mucous membranes and oropharynx mildly dry. Neck--supple. No JVD. No bruits. Thyroid normal, trachea midline, no adenopathy. Heart--normal S1 and S2. No murmurs, rubs or gallops. Lungs--clear bilaterally, no respiratory distress, no accessory muscle use. Abdomen--normal bowel sounds and soft. Nontender. Nondistended, no hernias or masses, no organomegaly. Extremities--No edema. Dermatologic--normal skin turgor, normal color, no abnormal lymph nodes, no rash. Neurologic--cranial nerves II through XII grossly intact. Rheumatologic--normal range of motion. Psychiatric--somnolent Principal Diagnosis Alcohol withdrawal Discharge Exam General: Awake, conversant Heart: S1, S2/regular rate and rhythm, no murmur rubs or gallops Lungs: Clear to auscultation bilaterally. Normal effort Abdomen: Soft/nontender/nondistended. No hepatosplenomegaly Extremities: No clubbing/cyanosis. No edema. Left upper extremity dressing on (recent skin cancer removal). Removed the dressing. Noticed some redness around the surgical site. Not warm to touch. No swelling noted. There is no discharge from the surgical incision. Behavior: Appropriate, cooperative Discharge Data Allergies Allergy/AdvReac Type Severity Reaction Status Date / Time doxycycline AdvReac Intermediate Nausea Verified 02/01/24 19:10 morphine AdvReac Intermediate Nausea Verified 02/01/24 19:10 Consultations 05/20/24 22:10 ED Decision to Admit Stat Hospital Course (1) Alcohol withdrawal: Alcohol withdrawal/alcohol intoxication/alcoholism-alcohol level 377 on admission and last drink 05/20. Patient drinks on average 15 beers a day but only drank 10 beers on the day of admission Patient has passed the alcohol withdrawal phase He completed Librium taper I will discharge the patient on p.o. folic acid, thiamine and vitamin Patient wanted to go home and then go to rehab. Case management handed him some resources and numbers to call Yesterday on 05/24, the patient was thought to have some mild fogginess of his brain. That seems to have really resolved today. PT/OT has cleared him for discharge. (2) Transaminitis: Total bilirubin normal but AST and ALT as well as alkaline phosphatase are rising-this is likely secondary to alcoholic hepatitis APAP level negative, urine drug screen negative Previous CT of abdomen and pelvis from 02/01/2024 with hepatic steatosis and he is s/p cholecystectomy. No hepatomegaly noted on physical exam here Encouraged alcohol cessation LFTs improving (3) Hyponatremia: Sodium 125 on admission likely secondary to beer Potomania. Resolved Follow BMP (4) COPD (chronic obstructive pulmonary disease): No acute issues, not requiring oxygen Continue DuoNeb every 2 hours as needed (5) GERD (gastroesophageal reflux disease): no acute issues (6) Skin wound from surgical incision: Some redness noted around the surgical incision site. No warmth, swelling or edema. Could be an allergic reaction to the tape Per nurse, there was some yellowish discharge noted from the incision site on 05/23. No discharge 05/24 Patient spoke to on-call diabetes territory manager who recommended p.o. Keflex and mupirocin. Patient will be discharged on p.o. Keflex and mupirocin Patient has been advised to follow-up with diabetes territory manager Plan Discharge to home today Total Time Total Time Spent Total Time Spent (In Minutes): 35 Discharge Plan Discharge Items Patient Disposition: Home - Self-Care Reason For Visit: ALCOHOL WITHDRAWAL,ALCOHOL INTOXICATION Discharge Diagnosis: Alcohol withdrawal Activity: Resume your previous activity Non-emergency contact: Primary Care Provider Call non-emergency contact if: you have any medication questions and your symptoms worsen Follow-up/Referrals: Erma Trejo CRNP [Primary Care Provider] - Diet: Heart Healthy Addtl Attending Provider Instructions: Advised to follow-up with PCP in 1 week Advised to follow-up with diabetes territory manager in 10 days Pending Studies at Discharge: No Stand-Alone Forms: My [facility], Smoking Cessation Medications and DC Order Prescriptions: New thiamine HCl (vitamin B1) 100 mg Tablet 100 mg PO QAM 30 Days Qty: 30 0RF folic acid 1 mg Tablet 1 mg PO QAM 30 Days Qty: 30 0RF multivitamin with folic acid [Daily-Estefania (with folic acid)] 400 mcg Tablet 1 tab PO QAM 30 Days Qty: 30 0RF mupirocin 2 % Ointment 1 applic EXT BID Qty: 15 0RF cephalexin 500 mg Capsule 500 mg PO TID 5 Days Qty: 15 0RF Continued methylphenidate HCl 20 mg tablet 20 mg PO BID omeprazole 40 mg capsule,delayed release(DR/EC) 40 mg PO QAM albuterol sulfate 90 mcg/actuation HFA aerosol inhaler 2 puff INHALATION .Q4-6H PRN (Reason: Shortness Of Breath Or Wheezing) rabeprazole 20 mg tablet,delayed release (DR/EC) 20 mg PO DAILY Discharge Orders: Discharge Order (Routine); Ordered 05/25/24 Ordered By: Hao Romero/Other Patient Handouts: Substance Abuse Rehab Program, SCI Alcohol Use, TBI Substance Abuse, Alcoholism: Getting Help, Alcohol Addiction, Addiction: Getting Help, Prevention Men 50 To 64, ED Alcohol Intoxication Admission Data Admit Date/Time: 05/20/24 23:12 Attending Provider: Hao Mello Admit Provider: Asael Caraballo Primary Care Provider: Erma Trejo Other Providers: Asael Caraballo
[2024-05-25 12:24] VITALS: BP 184/121; PULSE 90
== END 2024-05-25 12:55 | disposition home or self-care (01) | DRG 897 ==
LOC: ED 19:41 → 2E 23:12 → SUATTDRO 23:12 → 2E 05-21 00:18

== ENCOUNTER 2024-12-28 20:04 | Inpatient (IN) ==
--- NOTE | 2024-12-28 20:21 | Emergency Department Note ---
Impression & Plan Alcohol withdrawal, Tremulousness, Diffuse abdominal pain, Acute urinary retention, Acute hyponatremia ED Provider Note NAME: BRAYDEN MO AGE: 64 SEX: M : 1960 ARRIVES VIA: Ambulance INFORMANT: [Patient] ED PROVIDER(S): [Bal Rhodes MD] CHIEF COMPLAINT: Back and abdominal pain, alcohol withdrawal HISTORY OF PRESENT ILLNESS: The patient is a 64-year-old male who states that he typically drinks 15 or so beers a day. He has been trying to wean himself down, he is now down to 8 beers a day. Last drink of beer was just before arrival. In the last week, as he has been weaning down the alcohol, he has developed some lower back pain and some abdominal pain. He has a history of previous pancreatitis. Patient is starting to feel withdrawal, he is shaky, he is nauseated. He has not had fever, no cough or congestion. No urinary complaints, no diarrhea. The patient is asking for inpatient detox from alcohol. PMHx/PSHx/Social Hx: See Below PHYSICAL EXAM: GENERAL: Patient is in no acute distress. HEENT: No acute trauma, normocephalic atraumatic, mucous membranes moist, no nasal congestion. NECK: No stridor, no adenopathy, no meningismus, trachea is midline. LUNGS: Crackles to both lower lungs, no wheezing or rhonchi. HEART: Without murmurs gallops or rubs, regular rate and rhythm. ABDOMEN: Soft, nontender, no peritonitis. EXTREMITIES: No cyanosis, full range of motion of all the joints without pain or difficulty. NEUROLOGIC: Oriented x 3, no acute motor or sensory deficits, no focal weakness. Generalized tremor/shaking of his extremities seen. SKIN: No jaundice, no diaphoresis. DIFFERENTIAL DIAGNOSIS: Alcohol withdrawal, pancreatitis, musculoskeletal pain, diverticulitis, dehydration, renal or liver failure, among others. EMERGENCY DEPARTMENT PROCEDURES: MEDICAL DECISION MAKING: There is no leukocytosis. A very subtle anemia was seen. There was a normal platelet count. No bandemia. No coagulopathy. Patient's sodium is low at 126, he has a history of a lower sodium however, today's value is far below his typical baseline. No renal failure. No concerning liver enzyme elevation. No evidence for pancreatitis. ECG shows a sinus rhythm, no acute ischemia. Cardiac enzyme testing x 1 is not consistent with acute cardiac injury. Urinalysis does not show findings of infection. Urine tox was negative. Alcohol level was elevated at 181 consistent with his history of alcoholism. Abdominal and pelvis CT shows a large bladder, there was no bowel obstruction, no acute surgical process by CT imaging. Chest x-ray did not show pneumonia or free air. On exam, the patient had some extremity tremor. Patient received IV saline, 1.5 L. He received IV Phenergan, IV Zofran and IV Ativan. Patient is currently doing well, he has been resting. I did ask the patient to try and urinate, he was unable. A Luna catheter was ordered to drain the bladder. The bladder distention may be causing his abdominal pain. Given the alcohol withdrawal, given his hyponatremia, given his presentation and need for alcohol detox, hospitalization is indicated. I spoke with the patient and case management. The on-call hospitalist was consulted. Prior/Outside records/notes reviewed: None ECG per my interpretation: Indication was withdrawal. The ECG shows a normal sinus rhythm with a rate of 74. There is a potential old septal infarct. No ST elevation, no PVCs. QTc is 441. Continuous Cardiac Monitoring per my interpretation: An order was placed for continuous cardiac monitoring. The monitor shows a rate of 84 with normal sinus rhythm. Imaging/x-ray results per my interpretation: Chest x-ray does not show pneumonia or CHF. No free air. Chronic Medical/Social conditions affecting care: History of alcoholism Care/Management discussed with: Case management, the on-call hospitalist. Level of care consideration(s): After review of the information above and other included data: --I believe the patient requires escalation of care to admission DISPOSITION: Admission Past Med/Surg History Problem List (Updated 12/28/24 @ 23:54 by Bal Rhodes MD) Acute hyponatremia (Acute) Acute urinary retention (Acute) Diffuse abdominal pain (Acute) Tremulousness (Acute) Alcohol withdrawal (Acute) Skin wound from surgical incision Hyponatremia (Acute) Alcoholic intoxication (Acute) COPD (chronic obstructive pulmonary disease) GERD (gastroesophageal reflux disease) Alcoholism (Acute) Transaminitis Hypomagnesemia Hypertension (Acute) Medical History Alcohol withdrawal Social History Smoking Status: Never smoker Tobacco Type: Cigarettes Hx Alcohol Use: Yes Alcohol type: beer Hx Substance Use: No Preferred Language: Azerbaijani Communication Ability: Effective 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 Beliefs That Will Affect Care: None Current Living Situation: Alone Feels Safe at Home: Yes Assistive Devices: None Allergies Allergies Allergy/AdvReac Type Severity Reaction Status Date / Time doxycycline AdvReac Intermediate Nausea Verified 02/01/24 19:10 morphine AdvReac Intermediate Nausea Verified 02/01/24 19:10 Home Meds Home Medications Medication Instructions Recorded Confirmed albuterol sulfate 90 mcg/actuation 2 puff inhalation .Q4-6H PRN 02/01/24 05/20/24 aerosol inhaler Shortness Of Breath Or Wheezing methylphenidate HCl 20 mg tablet 20 mg PO BID 02/01/24 05/20/24 omeprazole 40 mg capsule,delayed 40 mg PO QAM 02/01/24 05/20/24 release rabeprazole 20 mg tablet,delayed 20 mg PO DAILY 05/20/24 05/20/24 release Previous Rx's Medication Instructions Recorded mupirocin 2 % topical ointment 1 applic EXT BID #15 grams 05/25/24 Results & Data (ED) Vital Signs Vital Signs - 24 hr 12/28/24 20:06 12/28/24 20:24 12/28/24 20:41 Temperature 36.6 C 36.6 C Temperature Source Oral Oral Pulse Rate 90 84 Pulse Rate [Right Finger] 99 H Respiratory Rate 18 24 Respiratory Effort / Characteristics Non-Labored Non-Labored Spontaneous Respiratory Depth Normal Normal Respiratory Pattern Regular Blood Pressure 145/75 H Blood Pressure [Right Arm] 168/95 H Blood Pressure Mean 98 Blood Pressure Mean [Right Arm] 119 Pulse Oximetry 93 95 Oxygen Delivery Method Room Air Room Air Sepsis Recent Fever Within 48 Hours No Sepsis New/Unexplained Change in Mental Status No Sepsis Action Taken by Nursing No Action Required 12/28/24 20:41 Temperature Temperature Source Pulse Rate 85 Pulse Rate [Right Finger] Respiratory Rate 16 Respiratory Effort / Characteristics Respiratory Depth Respiratory Pattern Blood Pressure Blood Pressure [Right Arm] Blood Pressure Mean Blood Pressure Mean [Right Arm] Pulse Oximetry 95 Oxygen Delivery Method Room Air Sepsis Recent Fever Within 48 Hours Sepsis New/Unexplained Change in Mental Status Sepsis Action Taken by [facility] Medications Current Medication List: was personally reviewed by me Laboratory Data Attestation: I reviewed the patient's lab results. 12/28/24 20:35 12/28/24 20:35 Lab Results 12/28/24 12/28/24 Range/Units 20:19 20:35 WBC 5.59 (4.8-10.8) K/ul RBC 4.38 L (4.70-6.10) M/uL Hgb 13.7 L (14.0-18.0) g/dl Hct 39.4 L (42.0-52.0) % MCV 90.0 (80.0-100.0) fL MCH 31.3 (25.0-34.0) pg MCHC 34.8 (32.0-36.0) g/dL RDW Std Deviation 52.8 H (36.4-46.3) fL RDW Coeff of [place]riqu[place] 15.9 H (11.5-14.5) % Plt Count 189 (130-400) K/uL MPV 9.2 L (9.4-12.4) fL Immature Gran % (Auto) 1.1 % Neut % (Auto) 58.6 % Lymph % (Auto) 25.6 % Pershing % (Auto) 12.7 % Eos % (Auto) 1.1 % Baso % (Auto) 0.9 % Neut # (Auto) 3.28 (1.40-6.50) K/uL Lymph # (Auto) 1.43 (1.20-3.40) K/uL Pershing # (Auto) 0.71 H (0.11-0.59) K/uL Eos # (Auto) 0.06 (0.00-0.50) K/uL Baso # (Auto) 0.05 (0.00-0.20) K/uL Immature Gran # (Auto) 0.06 (0.01-0.20) K/uL PT 10.0 (9.0-12.0) Seconds INR 0.9 (0.9-1.1) APTT 30 (21-31) Seconds PTT Ratio 1.1 Sodium 126 L (136-145) mmol/L Potassium 3.4 L (3.5-5.1) mmol/L Chloride 92 L (98-107) mmol/L Carbon Dioxide 22 (21-32) mmol/L Anion Gap 12 H (3-11) BUN 3 L (6-23) mg/dl Creatinine 0.56 L (0.6-1.4) mg/dl Est Cr Clr Drug Dosing 126.2 ml/min eGFR 110.75 BUN/Creatinine Ratio 5.4 L (10-20) Glucose 92 (70-99(Fasting)) mg/dl Calcium 8.8 (8.6-10.3) mg/dl Magnesium 1.7 (1.7-2.4) mg/dl Total Bilirubin 0.4 (0.2-1.0) mg/dl AST 44 H (13-39) U/L ALT 34 (7-52) U/L Alkaline Phosphatase 91 (34-104) U/L Troponin I High Sens 10.5 (0-20) pg/ml Total Protein 7.6 (6.0-8.3) gm/dl Albumin 4.2 (3.4-5.0) gm/dl Globulin 3.4 (2.5-4.0) gm/dl Albumin/Globulin Ratio 1.2 (0.9-2) Lipase 38 (11-82) U/L Urine Color Yellow Urine Appearance Clear (Clear) Urine pH 5.5 (4.5-7.5) Ur Specific [place] 1.003 (1.000-1.030) Urine Protein Negative (Negative) Urine Glucose (UA) Negative (Negative) Urine Ketones Negative (Negative) Urine Blood Negative (Negative) Urine Nitrite Negative (Negative) Urine Bilirubin Negative (Negative) Urine Urobilinogen Negative (Negative) Ur Leukocyte Esterase Negative (Negative) Urine Comment Urine Opiates Screen Neg (Neg) Ur Methadone, Qual Neg (Neg) Urine Fentanyl Screen Neg (Neg) Urine Barbiturates Neg (Neg) Ur Phencyclidine (PCP) Neg (Neg) U Amphetamin/Meth Scrn Neg (Neg) MDMA (Ecstasy) Screen Neg (Neg) U Benzodiazepines Scrn Neg (Neg) Ur Cocaine Metabolite Neg (Neg) U Marijuana (THC) Screen Neg (Neg) Ethyl Alcohol mg/dL 181.6 H (<10.0) mg/dl Administered Medications Discontinued Medications Sodium Chloride (Nss) 500 mls @ 999 mls/hr IV .Q31M STA Stop: 12/28/24 20:41 Last Infusion: 12/28/24 21:40 Dose: Infused Documented By: Admin: 12/28/24 20:36 Dose: 999 mls/hr Documented By: EMILIANO Promethazine HCl (Phenergan) 12.5 mg in 50.5 mls @ 202 mls/hr IV NOW STA Stop: 12/28/24 20:32 Last Infusion: 12/28/24 21:40 Dose: Infused Documented By: Admin: 12/28/24 20:53 Dose: 202 mls/hr Documented By: EMILIANO Sodium Chloride (Nss) 1,000 mls @ 999 mls/hr IV .Q1H1M ONE Stop: 12/28/24 22:24 Last Infusion: 12/28/24 23:08 Dose: Infused Documented By: Admin: 12/28/24 21:46 Dose: 999 mls/hr Documented By: MARGE Potassium Chloride (K Paul / Wtr) 10 meq in 100 mls @ 100 mls/hr IV ONE ONE Stop: 12/28/24 22:23 Last Infusion: 12/28/24 23:08 Dose: Infused Documented By: Admin: 12/28/24 21:45 Dose: 100 mls/hr Documented By: MARGE Ioversol (Optiray 320 100ml) 92 ml IV ONCE ONE Stop: 12/28/24 22:07 Last Admin: 12/28/24 22:06 Dose: 92 ml Documented By: HERI Lorazepam (Lorazepam 2 Mg/1 Ml Vial) 1 mg IV NOW STA Stop: 12/28/24 20:19 Last Admin: 12/28/24 20:57 Dose: 1 mg Documented By: EMILIANO Ondansetron HCl (Ondansetron Inj 2 Mg/Ml 2 Ml Vial) 4 mg IV NOW STA Stop: 12/28/24 20:19 Last Admin: 12/28/24 20:47 Dose: 4 mg Documented By: EMILIANO Imaging Data Radiologist's Impression: Abdomen/Pelvis CT 12/28/24 20:11 Exam(s): CT ABDOMEN + PELVIS With Contrast IV Amt: 93ml EXAM: CT Abdomen and Pelvis With Intravenous Contrast CLINICAL HISTORY: Reason for exam: pain, hist pancreatitis. TECHNIQUE: Axial computed tomography images of the abdomen and pelvis with intravenous contrast. CTDI is 25.88 mGy and DLP is 1443.84 mGy-cm. Automated exposure control was utilized for the study. A dose lowering technique was utilized adhering to the principles of ALARA. CONTRAST: Patient received 93ml of IV contrast COMPARISON: 07/08/2024 there are number of prominent though non pathologically enlarged fluid-filled loops of small bowel within the abdomen FINDINGS: Lung bases: Unremarkable. No mass. No consolidation. ABDOMEN: Liver: Hepatic steatosis. Gallbladder and bile ducts: Postoperative changes prior cholecystectomy. Pancreas: Unremarkable. No mass. No ductal dilation. Spleen: Unremarkable. No splenomegaly. Adrenals: Unremarkable. No mass. Kidneys and ureters: Unremarkable. No solid mass. No hydronephrosis. Stomach and bowel: Unremarkable. No obstruction. No mucosal thickening. PELVIS: Appendix: No findings to suggest acute appendicitis. Bladder: Marked distention of the urinary bladder. Reproductive: Unremarkable as visualized. ABDOMEN and PELVIS: Intraperitoneal space: Unremarkable. No free air. No significant fluid collection. Bones/joints: Remote healing left posterolateral 8th and 9th rib fractures. Advanced degenerative changes of the hips bilaterally with subtle sclerosis involving the weight-bearing portion of the superior articular surface of the left hip. This is unchanged from prior exam. No dislocation. Soft tissues: Unremarkable. Vasculature: Unremarkable. No abdominal aortic aneurysm. Lymph nodes: Unremarkable. No enlarged lymph nodes. IMPRESSION: Hepatic steatosis Markedly distended urinary bladder Postop changes prior cholecystectomy Electronically signed by: David Hand MD 12/28/24 23:15 PM Chest X-Ray 12/28/24 20:11 Exam(s): XR CXR 1 VIEW EXAM: XR Chest, 1 View CLINICAL HISTORY: Reason for exam: abd pain. TECHNIQUE: Frontal view of the chest. COMPARISON: 07/18/2023 FINDINGS: Lungs: Unremarkable. No consolidation. Pleural space: Unremarkable. No pneumothorax. Heart: Unremarkable. No cardiomegaly. Mediastinum: Unremarkable. Normal mediastinal contour. Bones/joints: Unremarkable. No acute fracture. IMPRESSION: Normal chest x-ray. Electronically signed by: David Hand MD 12/28/24 23:20 PM Discharge Plan Visit Data Chief Complaint: Back Injury/Pain Stated Complaint: BACK PAIN X3 DAYS ED Provider: Bal Rhodes Discharge Problem: Alcohol withdrawal, Tremulousness, Diffuse abdominal pain, Acute urinary retention, Acute hyponatremia Patient Disposition: Admitted As Inpatient Condition: Fair Forms Stand Alone Forms: [facility] Prescriptions Prescriptions: No Action methylphenidate HCl 20 mg tablet 20 mg PO BID omeprazole 40 mg capsule,delayed release(DR/EC) 40 mg PO QAM albuterol sulfate 90 mcg/actuation HFA aerosol inhaler 2 puff INHALATION .Q4-6H PRN (Reason: Shortness Of Breath Or Wheezing) rabeprazole 20 mg tablet,delayed release (DR/EC) 20 mg PO DAILY mupirocin 2 % Ointment 1 applic EXT BID Qty: 15 0RF Referrals Referrals: Erma Trejo CRNP [Primary Care Provider] - Discharge Problem: Alcohol withdrawal Qualifiers: Complication of substance-induced condition: with unspecified complication Q ualified Code(s): F10.939 - Alcohol use, unspecified with withdrawal, unspecified
[2024-12-28] MEDS: SODIUM CHLORIDE 0.9% 500 ML IV STA (20:36)
[2024-12-28] MEDS: ONDANSETRON INJ 2 MG/ML 2 ML VIAL IV STA (20:47)
[2024-12-28 20:52] LABS: Appearance Urine Clear (Clear); Glucose Urine UA Negative (Negative)
[2024-12-28] MEDS: PROMETHAZINE 12.5 MG/50.5 ML BAG IV STA (20:53)
[2024-12-28 21:01] LABS: Hematocrit (blood only) 39.4 % (42.0-52.0); Hemoglobin 13.7 g/dl (14.0-18.0); Immature Granulocytes # (auto) 0.06 K/uL (0.01-0.20); Immature Granulocytes % (auto) 1.1 %; Mean Corpuscular Hemoglobin 31.3 pg (25.0-34.0); Mean Corpuscular Volume 90.0 fL (80.0-100.0); Platelet Count 189 K/uL (130-400); RDW Standard Deviation 52.8 fL (36.4-46.3); Red Blood Count 4.38 M/uL (4.70-6.10); White Blood Count 5.59 K/ul (4.8-10.8)
[2024-12-28 21:18] LABS: Alanine Aminotransferase 34.0 U/L (7-52); Albumin Globulin Ratio 1.2 (0.9-2); Alkaline Phosphatase 91.0 U/L (34-104); Anion Gap 12.0 (3-11); Bilirubin,Total 0.4 mg/dl (0.2-1.0); Blood Urea Nitrogen 3.0 mg/dl (6-23); Calcium 8.8 mg/dl (8.6-10.3); Carbon Dioxide 22.0 mmol/L (21-32); Chloride 92.0 mmol/L (98-107); Creatinine Clr Calc Pharmacy 126.2 ml/min; Globulin 3.4 gm/dl (2.5-4.0); Glucose 92.0 mg/dl (70-99(Fasting)); Lipase 38.0 U/L (11-82); Magnesium 1.7 mg/dl (1.7-2.4); Potassium 3.4 mmol/L (3.5-5.1); Sodium 126.0 mmol/L (136-145); Total Protein 7.6 gm/dl (6.0-8.3)
[2024-12-28 21:30] LABS: INR 0.9 (0.9-1.1); Partial Thromboplastin Time 30 Seconds (21-31); Prothrombin Time 10.0 Seconds (9.0-12.0)
[2024-12-28 21:44] LABS: Amphetamines+Metham, Urine Neg (Neg); MDMA (Ecstacy), Urine Neg (Neg); Marijuana, Urine Neg (Neg)
[2024-12-28] MEDS: POTASSIUM CHLORIDE / WTR 10 MEQ/100 ML PLCT IV ONE (21:45)
[2024-12-28] MEDS: SODIUM CHLORIDE 0.9% 1,000 ML IV ONE (21:46)
[2024-12-28] MEDS: OPTIRAY 320 100ml IV ONE (22:06)
--- NOTE | 2024-12-28 23:16 | CT Scan Report ---
Exam(s): CT ABDOMEN + PELVIS With Contrast IV Amt: 93ml EXAM: CT Abdomen and Pelvis With Intravenous Contrast CLINICAL HISTORY: Reason for exam: pain, hist pancreatitis. TECHNIQUE: Axial computed tomography images of the abdomen and pelvis with intravenous contrast. CTDI is 25.88 mGy and DLP is 1443.84 mGy-cm. Automated exposure control was utilized for the study. A dose lowering technique was utilized adhering to the principles of ALARA. CONTRAST: Patient received 93ml of IV contrast COMPARISON: 07/08/2024 there are number of prominent though non pathologically enlarged fluid-filled loops of small bowel within the abdomen FINDINGS: Lung bases: Unremarkable. No mass. No consolidation. ABDOMEN: Liver: Hepatic steatosis. Gallbladder and bile ducts: Postoperative changes prior cholecystectomy. Pancreas: Unremarkable. No mass. No ductal dilation. Spleen: Unremarkable. No splenomegaly. Adrenals: Unremarkable. No mass. Kidneys and ureters: Unremarkable. No solid mass. No hydronephrosis. Stomach and bowel: Unremarkable. No obstruction. No mucosal thickening. PELVIS: Appendix: No findings to suggest acute appendicitis. Bladder: Marked distention of the urinary bladder. Reproductive: Unremarkable as visualized. ABDOMEN and PELVIS: Intraperitoneal space: Unremarkable. No free air. No significant fluid collection. Bones/joints: Remote healing left posterolateral 8th and 9th rib fractures. Advanced degenerative changes of the hips bilaterally with subtle sclerosis involving the weight-bearing portion of the superior articular surface of the left hip. This is unchanged from prior exam. No dislocation. Soft tissues: Unremarkable. Vasculature: Unremarkable. No abdominal aortic aneurysm. Lymph nodes: Unremarkable. No enlarged lymph nodes. IMPRESSION: Hepatic steatosis Markedly distended urinary bladder Postop changes prior cholecystectomy Electronically signed by: David Hand MD 12/28/24 23:15 PM
--- NOTE | 2024-12-28 23:20 | XRay Report ---
Exam(s): XR CXR 1 VIEW EXAM: XR Chest, 1 View CLINICAL HISTORY: Reason for exam: abd pain. TECHNIQUE: Frontal view of the chest. COMPARISON: 07/18/2023 FINDINGS: Lungs: Unremarkable. No consolidation. Pleural space: Unremarkable. No pneumothorax. Heart: Unremarkable. No cardiomegaly. Mediastinum: Unremarkable. Normal mediastinal contour. Bones/joints: Unremarkable. No acute fracture. IMPRESSION: Normal chest x-ray. Electronically signed by: David Hand MD 12/28/24 23:20 PM
--- NOTE | 2024-12-28 23:53 | History & Physical Report ---
Date of Service December 28, 2024 Assessment & Plan (1) Alcohol withdrawal: (2) Hyponatremia: (3) Hypokalemia: Plan 64-year-old male PMHx alcohol abuse, GERD, COPD, and HTN who presents for abdominal and back pain starting day arrival as well as request for alcohol detox. ED evaluation reveals leukocytosis, H&H 13.7/39.4; CMP sodium 126, potassium 3.4, chloride 92, anion gap 12, BUN 3, creatinine 0.56, ratio 5.4; AST 44; troponin 10.5; lipase 38; UA negative for infection; toxicology negative, alcohol 181.6; CTAP hepatic steatosis, distended urinary bladder, postop changes of cholecystectomy; CXR no acute findings; EKG NSR at 74 bpm.; Provided with 1.5L NSS, promethazine 12.5 mg IV, KCl 10 mEq IV, phenobarbital 95 mgs IM, ondansetron 4 mg IV, lorazepam 1 mg IV in ED. #Alcohol withdrawal Typically drinks 15-20 beers per day, drank 8 beers day of arrival, last drink 1 hour prior to arrival to ED. Presenting with abdominal and back pain, unable to qualify significance; did start to have tremors following his most recent drink, some agitation. No history of DTs/seizures. Has utilized inpatient treatment for alcohol abuse in the past. No history of blacking out. PAWS score 4. - CMP sodium 126, potassium 3.4, chloride 92, anion gap 12, BUN 3, creatinine 0.56, ratio 5.4, AST 44 - BMP am - CTAP hepatic steatosis, distended urinary bladder - Alcohol 181.6 on arrival - Seizure precautions - AWSS - Thiamine 500 mg IV x 1 now, then continue thiamine 100mg IV am - Folate 1 g IV am - Phenobarbital protocol ordered IM and po - Zofran prn #Hyponatremia Likely secondary to alcohol use, poor nutrition. Asymptomatic at present. - Na 126, glucose 92 - BMP am - LR @ 80 mL/hr #Hypokalemia Received 10 mEq KCl in ED. - K 3.4; Mg 1.7 - BMP am #GERD- Rabeprazole - continue #COPD- Albuterol, Atrovent - continue Dispo: Admit, PCU VTE Prophylaxis: SCDs This document was dictated utilizing [employer]. Please excuse any grammatical errors that may be secondary to use of this software. Admission and Anticipated Discharge Date Admission Date: 12/29/2024 History of Present Illness Chief Complaint: Abdominal, back pain Primary Care Provider: CHRIS Patiño 64-year-old male PMHx alcohol abuse, GERD, COPD, and HTN who presents for abdominal and back pain starting day arrival as well as request for alcohol detox. He has been trying to independently detox for the past week from alcohol. States lesion is approximately 15-20 beers per day, but on the day of arrival he had 8 beers which was a big decrease for him. He did start to feel tremulous after his last beer which was approximately an hour prior to arrival to the ED. Abdominal pain and back pain was worsening. He is unable to provide much further history. States that his mood is okay, not anxious at present. He did however receive Ativan in ED. No other complaints. Denies chest pain, SOB, palpitations, N/V/D/C. Only complaint is that the catheter is causing some burning and he is worried that he is going to urinate around the tubing. He does admit to history of tremors but no seizures, DTs. No blackouts. Has never mixed alcohol with other substances. [facility] ED evaluation reveals leukocytosis, H&H 13.7/39.4; CMP sodium 126, potassium 3.4, chloride 92, anion gap 12, BUN 3, creatinine 0.56, ratio 5.4; AST 44; troponin 10.5; lipase 38; UA negative for infection; toxicology negative, alcohol 181.6; CTAP hepatic steatosis, distended urinary bladder, postop changes of cholecystectomy; CXR no acute findings; EKG NSR at 74 bpm.; Provided with 1.5L NSS, promethazine 12.5 mg IV, KCl 10 mEq IV, phenobarbital 95 megs IM, ondansetron 4 mg IV, lorazepam 1 mg IV in ED. Please see Dr. Hendrix's attestation for adjustments/additions to treatment plan. Allergies Allergy/AdvReac Type Severity Reaction Status Date / Time doxycycline AdvReac Intermediate Nausea Verified 12/29/24 00:19 morphine AdvReac Intermediate Nausea Verified 12/29/24 00:19 Home Medications Medication Instructions Recorded Confirmed Type albuterol sulfate 90 mcg/actuation 2 puff inhalation .Q4-6H PRN 02/01/24 0702/15 History aerosol inhaler Shortness Of Breath Or Wheezing ipratropium bromide 17 2 puff inhalation AMHS 12/29/24 12/29/24 History mcg/actuation HFA aerosol inhaler (Atrovent HFA) rabeprazole 20 mg tablet,delayed 20 mg PO QAM 12/29/24 12/29/24 History release Past Med/Surg History Problem List Hypokalemia Acute hyponatremia (Acute) Acute urinary retention (Acute) Diffuse abdominal pain (Acute) Tremulousness (Acute) Alcohol withdrawal (Acute) Skin wound from surgical incision Hyponatremia (Acute) Alcoholic intoxication (Acute) COPD (chronic obstructive pulmonary disease) GERD (gastroesophageal reflux disease) Alcoholism (Acute) Transaminitis Hypomagnesemia Hypertension (Acute) Medical History Alcohol withdrawal Social History Smoking Status: Never smoker Tobacco Type: Cigarettes Hx Alcohol Use: Yes Alcohol type: beer Hx Substance Use: No Preferred Language: [place] Communication Ability: Effective Strip Presser Required: No Beliefs That Will Affect Care: None Current Living Situation: Alone Feels Safe at Home: Yes Assistive Devices: None Review of Systems Review of Systems: All systems reviewed & are unremarkable except as noted in Subjective Physical Exam Physical Exam: General: No acute distress Skin: Warm and dry Head: Normocephalic, atraumatic Eyes: PERRL, conjunctivae clear, sclera non-icteric ENT: External ear and ear canal without swelling; nose atraumatic; good dentition, tongue normal appearance, pharynx normal Neck: Supple, no LAD Cardio: RRR, no M/G/R, S1 and S2 normal Resp: No respiratory distress, Lungs CTA in all lobes bilaterally, no wheezes, rales, or rhonchi Abdomen: Soft, symmetric, nontender; No masses or hepatosplenomegaly; Bowel sounds normoactive MSK: No deformities; pulses palpable and equal; no edema. Neuro: Awake, alert; Sensation intact bilaterally; CN grossly intact Psych: Responding appropriately, no tremors, mood stable Results & Data Results & Data Vital Signs (Past 12 Hours) Vital Signs Temp Pulse Pulse Resp BP BP Pulse Ox 12/28/24 20:41 85 16 95 12/28/24 20:41 36.6 C 99 H 24 168/95 H 95 12/28/24 20:24 84 12/28/24 20:06 36.6 C 90 18 145/75 H 93 O2 Del Method 12/28/24 20:41 Room Air 12/28/24 20:41 Room Air 12/28/24 20:24 12/28/24 20:06 Room Air Laboratory Results 12/28/24 12/28/24 20:35 20:19 WBC 5.59 RBC 4.38 L Hgb 13.7 L Hct 39.4 L MCV 90.0 MCH 31.3 MCHC 34.8 RDW Std Deviation 52.8 H RDW Coeff of Enriqueta 15.9 H Plt Count 189 MPV 9.2 L Immature Gran % (Auto) 1.1 Neut % (Auto) 58.6 Lymph % (Auto) 25.6 Maries % (Auto) 12.7 Eos % (Auto) 1.1 Baso % (Auto) 0.9 Neut # (Auto) 3.28 Lymph # (Auto) 1.43 Maries # (Auto) 0.71 H Eos # (Auto) 0.06 Baso # (Auto) 0.05 Immature Gran # (Auto) 0.06 PT 10.0 INR 0.9 APTT 30 PTT Ratio 1.1 Sodium 126 L Potassium 3.4 L Chloride 92 L Carbon Dioxide 22 Anion Gap 12 H BUN 3 L Creatinine 0.56 L Est Cr Clr Drug Dosing 126.2 eGFR 110.75 BUN/Creatinine Ratio 5.4 L Glucose 92 Calcium 8.8 Magnesium 1.7 Total Bilirubin 0.4 AST 44 H ALT 34 Alkaline Phosphatase 91 Troponin I High Sens 10.5 Total Protein 7.6 Albumin 4.2 Globulin 3.4 Albumin/Globulin Ratio 1.2 Lipase 38 Urine Color Yellow Urine Appearance Clear Urine pH 5.5 Ur Specific [place] 1.003 Urine Protein Negative Urine Glucose (UA) Negative Urine Ketones Negative Urine Blood Negative Urine Nitrite Negative Urine Bilirubin Negative Urine Urobilinogen Negative Ur Leukocyte Esterase Negative Urine Comment Urine Opiates Screen Neg Ur Methadone, Qual Neg Urine Fentanyl Screen Neg Urine Barbiturates Neg Ur Phencyclidine (PCP) Neg U Amphetamin/Meth Scrn Neg MDMA (Ecstasy) Screen Neg U Benzodiazepines Scrn Neg Ur Cocaine Metabolite Neg U Marijuana (THC) Screen Neg Ethyl Alcohol mg/dL 181.6 H Diagnostic Findings Abdomen/Pelvis CT 12/28/24 20:11 Exam(s): CT ABDOMEN + PELVIS With Contrast IV Amt: 93ml EXAM: CT Abdomen and Pelvis With Intravenous Contrast CLINICAL HISTORY: Reason for exam: pain, hist pancreatitis. TECHNIQUE: Axial computed tomography images of the abdomen and pelvis with intravenous contrast. CTDI is 25.88 mGy and DLP is 1443.84 mGy-cm. Automated exposure control was utilized for the study. A dose lowering technique was utilized adhering to the principles of ALARA. CONTRAST: Patient received 93ml of IV contrast COMPARISON: 07/08/2024 there are number of prominent though non pathologically enlarged fluid-filled loops of small bowel within the abdomen FINDINGS: Lung bases: Unremarkable. No mass. No consolidation. ABDOMEN: Liver: Hepatic steatosis. Gallbladder and bile ducts: Postoperative changes prior cholecystectomy. Pancreas: Unremarkable. No mass. No ductal dilation. Spleen: Unremarkable. No splenomegaly. Adrenals: Unremarkable. No mass. Kidneys and ureters: Unremarkable. No solid mass. No hydronephrosis. Stomach and bowel: Unremarkable. No obstruction. No mucosal thickening. PELVIS: Appendix: No findings to suggest acute appendicitis. Bladder: Marked distention of the urinary bladder. Reproductive: Unremarkable as visualized. ABDOMEN and PELVIS: Intraperitoneal space: Unremarkable. No free air. No significant fluid collection. Bones/joints: Remote healing left posterolateral 8th and 9th rib fractures. Advanced degenerative changes of the hips bilaterally with subtle sclerosis involving the weight-bearing portion of the superior articular surface of the left hip. This is unchanged from prior exam. No dislocation. Soft tissues: Unremarkable. Vasculature: Unremarkable. No abdominal aortic aneurysm. Lymph nodes: Unremarkable. No enlarged lymph nodes. IMPRESSION: Hepatic steatosis Markedly distended urinary bladder Postop changes prior cholecystectomy Electronically signed by: David Hand MD 12/28/24 23:15 PM Chest X-Ray 12/28/24 20:11 Exam(s): XR CXR 1 VIEW EXAM: XR Chest, 1 View CLINICAL HISTORY: Reason for exam: abd pain. TECHNIQUE: Frontal view of the chest. COMPARISON: 07/18/2023 FINDINGS: Lungs: Unremarkable. No consolidation. Pleural space: Unremarkable. No pneumothorax. Heart: Unremarkable. No cardiomegaly. Mediastinum: Unremarkable. Normal mediastinal contour. Bones/joints: Unremarkable. No acute fracture. IMPRESSION: Normal chest x-ray. Electronically signed by: David Hand MD 12/28/24 23:20 PM Medications Administered 1.5L NSS Promethazine 12.5 mg IV KCl 10 mEq IV Phenobarbital 95 mg IM Ondansetron 4 mg IV Lorazepam 1 mg IV ECG Additional Comments: NSR 74 bpm, MT 134, QRS 88, QT/QTc 398/441, PRT 53/48/54 Code Status & VTE Plan Code Status Full Supervising Physician Co-Signing Physician Notes patient seen examined, chart reviewed, case discussed with JUSTICE Bauer agree with the assessment and plan as document above. In brief, patient is a 64-year-old male with history of daily alcohol use, approximately 15-20 beers per day. He has been trying to decrease his alcohol consumption at home but did develop some symptoms of withdrawal prior to arrival. Additionally, patient found to have urinary retention. He denies difficulty urinating or any other urinary complaints to me On physical exam he is resting comfortably, mildly tremulous, no acute distress, able to answer questions appropriately and follow commands Skinno rash HEENTmoist mucous membranes, neck supple Heart+ S1, S2, regular LungsCTA anteriorly Abdomensoft, nontender, nondistended Extremitieswarm, well-perfused Luna catheter in place with approximately 800 cc of clear, yellow urine. Nurse reports that she already removed 1800 mL of urine from the bag Labs and images reviewed significant for normochromic/normocytic anemia with Hgb = 13.7, HCT = 39.4 Normal PT/PTT/INR Sodium = 126, potassium = 3.4 Alcohol level = 181.6 Assessment/[id number] male presenting with acute alcohol withdrawal, acute urinary retention Admit to PCU Phenobarbital IM load, continue with p.o. taper, IM dosing as needed Continue thiamine and folic acid daily Maintain Luna catheter, closely monitor for postobstructive diuresis Presently on gentle fluids LR at 80 mL/h Remainder as above PG Care Time/CCT Total # of Minutes Spent Total Time Spent with Patient: Total time spent is greater than 50% in coordination of care (as documented) at patient's floor/unit and/or counseling patient: Coding Level of Care Code 93397 INT INP/OBS CARE MIN Diagnoses Alcohol withdrawal F10.939 Complication of substance-induced condition: with unspecified complication Hyponatremia E87.1 Hypokalemia E87.6 (1) Alcohol withdrawal Complication of substance-induced condition: with unspecified complication Qualified Code(s): F10.939 - Alcohol use, unspecified with withdrawal, unspecified
[2024-12-29] MEDS: LIDOCAINE 2% JELLY 5 ML TUBE EXT ONE (00:03)
[2024-12-29] MEDS ORDERED: PHENobarbital PO Alcohol Withdrawal PO STA (00:38)
[2024-12-29] MEDS ORDERED: ALBUTEROL HFA 8 GM INHALER INH PRN (00:38)
[2024-12-29] MEDS ORDERED: ONDANSETRON INJ 2 MG/ML 2 ML VIAL IV PRN (00:38)
[2024-12-29] MEDS: THIAMINE HCL 500 MG in SODIUM CHLORIDE 0.9% 50 ML IV STA (00:52)
[2024-12-29] MEDS: LACTATED RINGER'S 1,000 ML IV SCH (01:57)
[2024-12-29] MEDS: Albuterol HFA 8 GM Inhaler (Combivent Respimat P&T Subs) INH SCH (07:00)
[2024-12-29] MEDS: Ipratropium HFA Inhaler (Combivent Respimat P&T Subs) INH SCH (07:14)
[2024-12-29] MEDS: FOLIC ACID 1 MG in SYRINGE 9.8 ML IV SCH (08:11)
[2024-12-29] MEDS: THIAMINE HCL 100 MG in SYRINGE 9 ML IV SCH (08:11)
[2024-12-29] MEDS ORDERED: IPRATROPIUM BROMIDE HFA INHALER INH SCH (09:00)
[2024-12-29 09:09] LABS: Alanine Aminotransferase 33.0 U/L (7-52); Albumin Globulin Ratio 1.5 (0.9-2); Alkaline Phosphatase 95.0 U/L (34-104); Anion Gap 11.0 (3-11); Bilirubin,Total 0.7 mg/dl (0.2-1.0); Blood Urea Nitrogen 4.0 mg/dl (6-23); Calcium 8.7 mg/dl (8.6-10.3); Carbon Dioxide 25.0 mmol/L (21-32); Chloride 101.0 mmol/L (98-107); Creatinine Clr Calc Pharmacy 101.0 ml/min; Globulin 2.9 gm/dl (2.5-4.0); Glucose 113.0 mg/dl (70-99(Fasting)); Potassium 3.7 mmol/L (3.5-5.1); Sodium 137.0 mmol/L (136-145); Total Protein 7.2 gm/dl (6.0-8.3)
--- NOTE | 2024-12-29 13:36 | Hospitalist Progress Note ---
Date of Service December 29, 2024 Assessment & Plan (1) Alcohol withdrawal: Plan: Alcohol intoxication present on admission with alcohol level 1.8. He is now on scheduled dosing of Librium which will be gradually tapered down. Supportive care. IV fluids (2) Hyponatremia: Plan: Sodium 126 with hyperosmolar state. Continue IV fluids. Serial labs (3) Hypokalemia: Plan: Parenteral replacement. Serial labs (4) COPD (chronic obstructive pulmonary disease): Plan: Stable. Continue current medical management Plan Hopeful discharge to home within the next 2 to 3 Admission and Anticipated Discharge Date Admission Date: December 29, 2024 Subjective Alert and oriented but complaining of anxiety. Phenobarbital has been discontinued and he is now on scheduled dosing of Librium. Will use IV Ativan as needed for his anxiety state. Potassium replacement ordered. Alcohol level 1.8 on admission. He is now on IV fluids. Serum osmolarity is elevated at 308. Sodium 126 on admission and potassium 3.4 Review of Systems 2 Review of Systems: Constitutionalno fever or chills ENTno blurred vision, no double vision, no epistaxis, no sore throat Respiratoryno cough, no wheezing, no shortness of breath Cardiacno palpitations, no chest pain, no syncope Krystle nausea, vomiting, diarrhea, melena, hematochezia GUno urinary retention, no urinary incontinence, no dysuria, no hematuria Musculoskeletalno joint pain, no muscle tenderness Skinno bruising, no rashes, no pruritus Neurono isolated weakness, no paresthesia, no weakness Psych-anxiety state. Physical Exam 2 Physical Exam: General-alert and oriented x3, no fever, no chills HEENT-head atraumatic and normocephalic, pupils equal and reactive to light, extraocular muscles intact Neck-no lymphadenopathy or thyromegaly, trachea midline Chest-clear to auscultation. No rales, wheezing or rhonchi Cardiac-regular rate and rhythm, normal S1 and S2 Abdomen-normal bowel sounds, no hepatosplenomegaly Extremities-no cyanosis, clubbing, or edema Neuro-cranial nerves II through XII intact, motor and sensory function within normal limits, strength symmetrical, no focal deficits Psych-normal affect, normal mood Results & Data Results & Data Vital Signs (Past 12 Hours) Vital Signs Temp Pulse Pulse Resp BP BP Pulse Ox 12/29/24 11:00 36.6 C 80 18 140/80 98 12/29/24 08:00 104 H 18 191/76 H 95 12/29/24 07:16 92 H 18 94 12/29/24 07:09 83 12/29/24 07:00 72 15 138/81 96 12/29/24 06:35 81 17 157/71 H 12/29/24 06:00 36.6 C 80 16 157/71 H 95 12/29/24 04:00 87 15 134/63 91 12/29/24 04:00 93 H 16 134/63 93 12/29/24 03:39 93 H 19 165/78 H 92 12/29/24 03:39 95 H 18 165/78 H 12/29/24 03:13 100 H 23 136/110 H 91 12/29/24 03:00 36.6 C 100 H 29 H 147/122 H 94 12/29/24 02:30 84 11 L 92 12/29/24 02:13 97 H 28 H 112/66 12/29/24 02:06 82 12 95 12/29/24 02:00 181/93 H 12/29/24 01:42 86 15 94 O2 Del Method 12/29/24 11:00 Room Air 12/29/24 08:00 Room Air 12/29/24 07:16 Room Air 12/29/24 07:09 12/29/24 07:00 Room Air 12/29/24 06:35 12/29/24 06:00 Room Air 12/29/24 04:00 Room Air 12/29/24 04:00 Room Air 12/29/24 03:39 Room Air 12/29/24 03:39 12/29/24 03:13 Room Air 12/29/24 03:00 Room Air 12/29/24 02:30 12/29/24 02:13 12/29/24 02:06 12/29/24 02:00 12/29/24 01:42 Laboratory Results 12/28/24 20:35 12/29/24 07:43 PG Care Time/CCT Total # of Minutes Spent Total Time Spent with Patient: Total time spent is greater than 50% in coordination of care (as documented) at patient's floor/unit and/or counseling patient: Coding Level of Care Code 15763 SUB INP/OBS CARE 3/50MIN Diagnoses Alcohol withdrawal F10.939 Complication of substance-induced condition: with unspecified complication Hyponatremia E87.1 Hypokalemia E87.6 COPD (chronic obstructive pulmonary disease) J44.9 (1) Alcohol withdrawal Complication of substance-induced condition: with unspecified complication Qualified Code(s): F10.939 - Alcohol use, unspecified with withdrawal, unspecified
--- NOTE | 2024-12-29 17:48 | Electrocardiogram Report ---
Test Reason : Blood Pressure : */* mmHG Vent. Rate : 74 BPM Atrial Rate : 74 BPM P-R Int : 134 ms QRS Dur : 88 ms QT Int : 398 ms P-R-T Axes : 53 48 54 degrees QTcB Int : 441 ms Normal sinus rhythm Incomplete right bundle branch block When compared with ECG of 08-Jul-2024 18:19, T wave inversion now evident in Anterior leads Confirmed by Nacho Lopez ([id number]) on 12/29/2024 5:47:45 PM Referred By: REFERRED SELF Confirmed By: Nacho Lopez
[2024-12-30 06:08] LABS: Alanine Aminotransferase 25.0 U/L (7-52); Albumin Globulin Ratio 1.1 (0.9-2); Alkaline Phosphatase 88.0 U/L (34-104); Anion Gap 7.0 (3-11); Bilirubin,Total 0.6 mg/dl (0.2-1.0); Blood Urea Nitrogen 9.0 mg/dl (6-23); Calcium 8.6 mg/dl (8.6-10.3); Carbon Dioxide 28.0 mmol/L (21-32); Chloride 102.0 mmol/L (98-107); Creatinine Clr Calc Pharmacy 94.3 ml/min; Globulin 3.1 gm/dl (2.5-4.0); Glucose 97.0 mg/dl (70-99(Fasting)); Potassium 3.7 mmol/L (3.5-5.1); Sodium 137.0 mmol/L (136-145); Total Protein 6.6 gm/dl (6.0-8.3)
[2024-12-30 11:54] VITALS: RESP 18
--- NOTE | 2024-12-30 12:49 | Hospitalist Progress Note ---
Date of Service December 30, 2024 Assessment & Plan (1) Alcohol withdrawal: Plan: Alcohol intoxication present on admission with alcohol level 1.8. He remains on tapering dose of Librium. Oral intake is adequate. IV fluids discontinued (2) Hyponatremia: Plan: Sodium 126 with hyperosmolar state on admission. Sodium is now normalized. IV fluids have been discontinued. Serial labs (3) Hypokalemia: Plan: Corrected with parenteral replacement. Serial labs (4) COPD (chronic obstructive pulmonary disease): Plan: Stable. Continue current medical management Plan Hopeful discharge to home tomorrow, December 31 Admission and Anticipated Discharge Date Admission Date: December 29, 2024 Subjective Alert and oriented. No distress. Sodium has improved to 137. Potassium corrected to 3.7. Luna catheter will be discontinued. Occupational therapy and physical therapy evaluations have been requested. Probable discharge to home tomorrow, December 31 Review of Systems 2 Review of Systems: Constitutionalno fever or chills ENTno blurred vision, no double vision, no epistaxis, no sore throat Respiratoryno cough, no wheezing, no shortness of breath Cardiacno palpitations, no chest pain, no syncope Krystle nausea, vomiting, diarrhea, melena, hematochezia GUno urinary retention, no urinary incontinence, no dysuria, no hematuria Musculoskeletalno joint pain, no muscle tenderness Skinno bruising, no rashes, no pruritus Neurono isolated weakness, no paresthesia, no weakness Psych-normal affect. Normal mood Physical Exam 2 Physical Exam: General-alert and oriented x3, no fever, no chills HEENT-head atraumatic and normocephalic, pupils equal and reactive to light, extraocular muscles intact Neck-no lymphadenopathy or thyromegaly, trachea midline Chest-clear to auscultation. No rales, wheezing or rhonchi Cardiac-regular rate and rhythm, normal S1 and S2 Abdomen-normal bowel sounds, no hepatosplenomegaly Extremities-no cyanosis, clubbing, or edema Neuro-cranial nerves II through XII intact, motor and sensory function within normal limits, strength symmetrical, no focal deficits Psych-normal affect, normal mood Results & Data Results & Data Vital Signs (Past 12 Hours) Vital Signs Temp Pulse Resp BP Pulse Ox O2 Del Method 12/30/24 11:53 36.7 C 86 18 165/88 H 96 Room Air 12/30/24 07:09 36.6 C 70 17 151/81 H 95 Room Air 12/30/24 04:50 36.7 C 74 16 191/92 H 98 Room Air Laboratory Results 12/28/24 20:35 12/30/24 04:56 PG Care Time/CCT Total # of Minutes Spent Total Time Spent with Patient: Total time spent is greater than 50% in coordination of care (as documented) at patient's floor/unit and/or counseling patient: Coding Level of Care Code 37849 SUB INP/OBS CARE MIN Diagnoses Alcohol withdrawal F10.939 Complication of substance-induced condition: with unspecified complication Hyponatremia E87.1 Hypokalemia E87.6 COPD (chronic obstructive pulmonary disease) J44.9 (1) Alcohol withdrawal Complication of substance-induced condition: with unspecified complication Qualified Code(s): F10.939 - Alcohol use, unspecified with withdrawal, unspecified
[2024-12-30] MEDS: POLYETHYLENE (MIRALAX) 17 GM PACK PO PRN (22:08)
[2024-12-31] MEDS: LORazepam 0.5 MG TAB PO PRN (01:12)
[2024-12-31 06:06] LABS: Alanine Aminotransferase 25.0 U/L (7-52); Albumin Globulin Ratio 1.4 (0.9-2); Alkaline Phosphatase 88.0 U/L (34-104); Anion Gap 9.0 (3-11); Bilirubin,Total 0.5 mg/dl (0.2-1.0); Blood Urea Nitrogen 11.0 mg/dl (6-23); Calcium 9.1 mg/dl (8.6-10.3); Carbon Dioxide 27.0 mmol/L (21-32); Chloride 100.0 mmol/L (98-107); Creatinine Clr Calc Pharmacy 98.2 ml/min; Globulin 2.9 gm/dl (2.5-4.0); Glucose 101.0 mg/dl (70-99(Fasting)); Potassium 3.8 mmol/L (3.5-5.1); Sodium 136.0 mmol/L (136-145); Total Protein 6.9 gm/dl (6.0-8.3)
[2024-12-31 08:19] VITALS: BP 145/88; TEMP 98.1; O2SAT 96
--- NOTE | 2024-12-31 09:49 | Discharge Summary ---
Discharge Summary Date of Service December 31, 2024 Principal Dx & Hospital Course #1 = Principal Diagnosis (1) Alcohol withdrawal: Alcohol intoxication present on admission with alcohol level 1.8. He remains on tapering dose of Librium. Oral intake is adequate. IV fluids have been discontinued (2) Hyponatremia: Sodium 126 with hyperosmolar state on admission. Sodium is now normalized. IV fluids have been discontinued. Serial labs (3) Hypokalemia: Corrected with parenteral replacement. Serial labs (4) COPD (chronic obstructive pulmonary disease): Stable. Continue current medical management Plan Home today, December 31, on Librium tapering dose and as needed Vistaril for anxiety. Admission HPI Per Admitting Provider 64-year-old male PMHx alcohol abuse, GERD, COPD, and HTN who presents for abdominal and back pain starting day arrival as well as request for alcohol detox. He has been trying to independently detox for the past week from alcohol. States lesion is approximately 15-20 beers per day, but on the day of arrival he had 8 beers which was a big decrease for him. He did start to feel tremulous after his last beer which was approximately an hour prior to arrival to the ED. Abdominal pain and back pain was worsening. He is unable to provide much further history. States that his mood is okay, not anxious at present. He did however receive Ativan in ED. No other complaints. Denies chest pain, SOB, palpitations, N/V/D/C. Only complaint is that the catheter is causing some burning and he is worried that he is going to urinate around the tubing. He does admit to history of tremors but no seizures, DTs. No blackouts. Has never mixed alcohol with other substances. [facility] ED evaluation reveals leukocytosis, H&H 13.7/39.4; CMP sodium 126, potassium 3.4, chloride 92, anion gap 12, BUN 3, creatinine 0.56, ratio 5.4; AST 44; troponin 10.5; lipase 38; UA negative for infection; toxicology negative, alcohol 181.6; CTAP hepatic steatosis, distended urinary bladder, postop changes of cholecystectomy; CXR no acute findings; EKG NSR at 74 bpm.; Provided with 1.5L NSS, promethazine 12.5 mg IV, KCl 10 mEq IV, phenobarbital 95 megs IM, ondansetron 4 mg IV, lorazepam 1 mg IV in ED. Please see Dr. Hendrix's attestation for adjustments/additions to treatment plan. Discharge Exam General-alert and oriented x3, no fever, no chills HEENT-head atraumatic and normocephalic, pupils equal and reactive to light, extraocular muscles intact Neck-no lymphadenopathy or thyromegaly, trachea midline Chest-clear to auscultation. No rales, wheezing or rhonchi Cardiac-regular rate and rhythm, normal S1 and S2 Abdomen-normal bowel sounds, no hepatosplenomegaly Extremities-no cyanosis, clubbing, or edema Neuro-cranial nerves II through XII intact, motor and sensory function within normal limits, strength symmetrical, no focal deficits Psych-normal affect, normal mood Discharge Plan Discharge Items Patient Disposition: Home - Self-Care Reason For Visit: ETOH DETOX Discharge Diagnosis: Alcohol intoxication, hyponatremia, hypokalemia, anxiety state Condition on Discharge: Good Activity: Resume your previous activity Non-emergency contact: Primary Care Provider Call non-emergency contact if: you have any medication questions Follow-up/Referrals: Erma Trejo CRNP [Primary Care Provider] - Diet: Regular Addtl Attending Provider Instructions: Take Librium in a tapering dose fashion as directed. Take Vistaril as needed for anxiety. Prescriptions have been sent to your pharmacy in [place]. Alcohol intake cessation is highly recommended. Pending Studies at Discharge: No Stand-Alone Forms: My [employer], Smoking Cessation Medications and DC Order Prescriptions: New chlordiazepoxide HCl 10 mg Capsule See Rx Instructions .ROUTE .COMPLEX Qty: 12 0RF Rx Instructions: 10 mg orally 3 times a day for 2 days, then twice a day for 2 days, then once a day for 2 days, then stop hydroxyzine HCl 25 mg Tablet 25 mg PO Q6H PRN (Reason: anxiety) Qty: 20 0RF Continued albuterol sulfate 90 mcg/actuation HFA aerosol inhaler 2 puff INHALATION .Q4-6H PRN (Reason: Shortness Of Breath Or Wheezing) rabeprazole 20 mg tablet,delayed release (DR/EC) 20 mg PO QAM Atrovent HFA 17 mcg/actuation HFA aerosol inhaler 2 puff INHALATION [facility] Discharge Orders: Discharge Order (Routine); Ordered 12/31/24 Ordered By: Tapan Rudolph Admission Data Admit Date/Time: 12/29/24 00:26 Attending Provider: Tapan Rudolph Admit Provider: Alba Hendrix Primary Care Provider: Erma Trejo Other Providers: Alba Hendrix Hospital Stay Data Consultations 12/28/24 23:38 ED Decision to Admit Stat Diagnostic Imagining Performed 12/28/24 20:11 CT abd pelvis IV con only Stat Pending Results Patient Have Any Pending Studies at Discharge: No Discharge Instructions Given to Patient (Per Discharging Provider) Take Librium in a tapering dose fashion as directed. Take Vistaril as needed for anxiety. Prescriptions have been sent to your pharmacy in [place]. Alcohol intake cessation is highly recommended. Total Time Total Time Spent Total Time Spent (In Minutes): 45 minutes Coding Level of Care Code 96989 INP/OBS DISCH >30 MIN Diagnoses Alcohol withdrawal F10.939 Complication of substance-induced condition: with unspecified complication Hyponatremia E87.1 Hypokalemia E87.6 COPD (chronic obstructive pulmonary disease) J44.9
[2024-12-31 14:07] VITALS: PULSE 72
== END 2024-12-31 15:11 | disposition home or self-care (01) | DRG 897 ==
LOC: ED 20:04 → SUATTDRO 12-29 00:26 → EDINP 12-29 00:26 → 4W 12-29 14:29